=== PATIENT | female | born 1955 | race Caucasian/White ===

== ENCOUNTER 2021-03-25 09:44 | Emergency (ER) | payer MEDICARE, OTHER ==
[~2021-03-25] VITALS: Ht 162.6 cm; Wt 52.2 kg
[~2021-03-25 09:44] MED LIST: ALENDRONATE SOD10 MG PO; ALPRAZOLAM1 MG PO; AMITRIPTYLINE100 MG PO; BACLOFEN10 MG PO; BUTALB-ACETAMI1 EACH PO; HYDROCODON-ACE1 EA10 PO; HYDROMORPHONE HC2 MG PO; NORCO 5-325 TA1 EACH PO; OMEPRAZOLE20 MG PO; ONDANSETRON ODT8 MG PO; OXYBUTYNIN CHLOR5 MG PO
--- OUTSIDE RECORDS SUMMARY | 2021-03-25 10:20 | XMS ---
PreManage Notification: CHITRA ALVAREZ Security Venue Coordinator Events No recent Security Events currently on file [facility] There are no care providers on record at this time. Mynor has no Care Guidelines for this patient. Rickie VISIT COUNT (12 MO.) 1 NADJA Randolph TOTAL 1 NOTE: Visits indicate total known visits. ED/UCC VISIT TRACKING (12 MO.) 03/25/2021 09:45 NADJA Vaz[facility] [place] TYPE: Emergency COMPLAINT: - R KNEE TWISTED/PAIN INPATIENT VISIT TRACKING (12 MO.) No inpatient visits to display in this time frame [id number]
[2021-03-25] MEDS ORDERED: HYDROCODON-ACE1 EA10 PO (10:43)
[2021-03-25] MEDS ORDERED: ONDANSETRON ODT8 MG PO (10:43)
== END 2021-03-25 11:37 | disposition home or self-care (01) ==
LOC: ED 09:44
DX: S83.91XA Sprain of unspecified site of right knee, initial encounter (principal); F17.200 Nicotine dependence, unspecified, uncomplicated; X50.9XXA Other and unspecified overexertion or strenuous movements or postures, initial encounter; Z88.5 Allergy status to narcotic agent; Z79.899 Other long term (current) drug therapy
CPT/HCPCS: 73560; 99283; A9270

== ENCOUNTER 2024-10-27 09:14 | Emergency (ER) | payer MEDICARE, OTHER ==
[~2024-10-27] VITALS: Ht 162.6 cm; Wt 57.3 kg
[2024-10-27] MEDS ORDERED: SODIUM CHLORIDE 0.9% 1,700 ML IV PRN (09:30)
[2024-10-27] MEDS ORDERED: CEFTRIAXONE SODIUM 2 GM in SODIUM CHLORIDE 0.9% 100 ML IV ONE (09:30)
[2024-10-27 09:50] LABS: BASOPHILS 0.6 % (0.1-1.2); EOSINOPHILS 0.8 % (0.7-5.8); HEMATOCRIT 42.1 % (34.1-44.9); HEMOGLOBIN 14.1 g/dL (11.2-15.7); LYMPHOCYTES 20.1 % (19.3-51.7); MCH 31.5 PG (25.6-32.2); MCHC 33.5 g/dL (32.2-35.5); MONOCYTES 10.8 % (4.7-12.5); NEUTROPHILS 67.3 % (34.0-71.1); PLATELET COUNT 364 K/uL (182-369); RBC 4.48 M/uL (3.93-5.22)
[2024-10-27 10:04] LABS: PARTIAL THROMBOPLASTIN TIME 25.3 Sec (22.9-41.3)
[2024-10-27 10:05] LABS: INR 1.02 (0.80-1.30); PROTIME 12.8 Sec (11.2-14.2)
[2024-10-27 10:13] LABS: LACTIC ACID, BLOOD 0.9 mmol/L (0.4-2.0)
[2024-10-27 10:16] LABS: BILIRUBIN, URINE NEGATIVE (negative); BLOOD/HGB, URINE LARGE (Negative); KETONE, URINE SMALL (Negative); LEUK ESTERASE, URINE LARGE (negative); NITRITE, URINE POSITIVE (negative)
[2024-10-27 10:22] LABS: BACTERIA, URINE 2+ /hpf (negative); CRYSTALS, URINE NONE SEEN (0-1+); EPITHELIAL CELLS, URINE SQUAMOUS 2+ /lpf (0-1+); RED BLOOD CELLS, URINE 41-50 /hpf (0-5); WHITE BLOOD CELLS, URINE 41-50 /HPF (0-5)
[2024-10-27 10:23] LABS: CASTS, URINE NONE SEEN \\lpf; COLLECTION TYPE, URINE CLEAN CATCH; REFLEX CULTURE, URINE No (No)
[2024-10-27 10:25] LABS: ALBUMIN 3.6 g/dL (3.4-5.0); ALBUMIN/GLOBULIN RATIO 1.06 (1.1-2.4); ANION GAP 14.9 (7-21); BUN/CREATININE RATIO 19.64 (6.0-28.6); CALCIUM 9.4 mg/dL (8.5-10.1); CREATININE, SERUM 0.56 mg/dL (0.55-1.02); POTASSIUM 3.9 mmol/L (3.5-5.1)
[2024-10-27 10:28] LABS: ACETAMINOPHEN 0 ug/mL (10-30); ALCOHOL, MEDICAL <3 ng/dL (<3); SALICYLATE 4.3 mg/dL (2.8-20.0); TSH, 3RD GENERATION 2.683 uIU/mL (0.358-3.740)
[2024-10-27 10:43] LABS: AMPHETAMINES, URINE NEGATIVE (NEGATIVE); BARBITURATES, URINE NEGATIVE (NEGATIVE); BENZODIAZEPINE, URINE NEGATIVE (NEGATIVE); BUPRENORPHINE, URINE NEGATIVE (NEGATIVE); CANNABINOID, URINE POSITIVE (NEGATIVE); COCAINE, URINE NEGATIVE (NEGATIVE); ECSTASY, URINE NEGATIVE (NEGATIVE); FENTANYL, URINE NEGATIVE (NEGATIVE); METHADONE, URINE NEGATIVE (NEGATIVE); OPIATES, URINE NEGATIVE (NEGATIVE); OXYCODONE, URINE POSITIVE (NEGATIVE); PHENCYCLIDINE, URINE NEGATIVE (NEGATIVE)
[2024-10-27] MEDS ORDERED: BUTALB-ACETAMI1 EACH (11:11)
[2024-10-27] MEDS ORDERED: METOPROLOL TART25 MG (11:12)
[2024-10-27 11:37] LABS: LACTIC ACID, BLOOD 0.8 mmol/L (0.4-2.0)
[2024-10-27 15:14] VITALS: BP 157/94
--- NOTE | 2024-10-28 21:28 | EKG ---
[facility] [address] [place] [address] Signed Normal sinus rhythm Anteroseptal infarct , age undetermined Abnormal ECG No previous ECGs available Confirmed by Carolann Chawla MD () on 10/28/2024 9:27:52 PM Electronically Signed By: CAROLANN CHAWLA MD 10/28/242127 PATIENT NAME: CHITRA ALVAREZ Electrocardiogram DATE OF : 55 PHYSICIAN: CAROLANN CHAWLA MD REPORT #: [id number] REPORT IS CONFIDENTIAL AND NOT TO BE RELEASED WITHOUT AUTHORIZATION
== END 2024-10-27 15:14 | disposition short-term general hospital (02) ==
LOC: ED 09:14
PROVIDERS: Emergency Medicine
DX: G93.40 Encephalopathy, unspecified (principal); F17.200 Nicotine dependence, unspecified, uncomplicated; Z79.899 Other long term (current) drug therapy; Z88.5 Allergy status to narcotic agent
CPT/HCPCS: 36415; 51702; 62270; 70450; 70486; 70496; 71045; 71250; 74176; 80053; 80307; 81001; 82140; 82945; 83605; 84157; 84443; 85025; 85610; 85730; 87040; 87205; 89051; 93005; 93010; 99285-25; A4311; G0480; J0696; Q9967

== ENCOUNTER 2025-01-26 13:09 | Emergency (ER) | payer MEDICARE, OTHER ==
[~2025-01-26] VITALS: Ht 162.6 cm; Wt 52.0 kg
[~2025-01-26 13:09] MED LIST changes: +BUTALB-ACETAMI1 EACH; +METOPROLOL TART25 MG
[2025-01-26] MEDS ORDERED: AMOX TR-K CLV1 EAC1 PO (13:51)
[2025-01-26] MEDS ORDERED: POTASSIUM CHLO20 ME2 (13:57)
[2025-01-26 13:58] VITALS: BP 111/74
== END 2025-01-26 14:01 | disposition home or self-care (01) ==
LOC: ED 13:09
DX: H66.91 Otitis media, unspecified, right ear (principal); G40.909 Epilepsy, unspecified, not intractable, without status epilepticus; F17.200 Nicotine dependence, unspecified, uncomplicated; Z88.5 Allergy status to narcotic agent; Z79.899 Other long term (current) drug therapy
CPT/HCPCS: 99282

== ENCOUNTER 2025-02-04 07:00 | Emergency (ER) | payer MEDICARE, OTHER ==
[~2025-02-04] VITALS: Ht 162.6 cm; Wt 55.0 kg
[~2025-02-04 07:00] MED LIST changes: +AMOX TR-K CLV1 EAC1 PO; +POTASSIUM CHLO20 ME2
--- OUTSIDE RECORDS SUMMARY | 2025-02-04 07:06 | XMS ---
PreManage Notification: CHITRA ALVAREZ Security Creel Selector Events No recent Security Events currently on file CRITERIA MET - [facility] - 2 Visits in 30 Days CARE PROVIDERS TACHO GARAY Nurse Practitioner: Family [facility] PHONE: [phone] LUCY ACKERMAN Physician Fire Sprinkler Designer Drea GERBER PHONE: [phone] MARTINA PAUL Nurse Practitioner: Adult Health [facility] PHONE: [phone] Mynor has no Care Guidelines for this patient. E.D. VISIT COUNT (12 MO.) 3 NADJA Randolph TOTAL 3 NOTE: Visits indicate total known visits. ED/UCC VISIT TRACKING (12 MO.) 02/04/2025 07:00 [facility] [place] TYPE: Emergency COMPLAINT: - FALL 01/26/2025 13:10 NADJA [facility] [place] TYPE: Emergency COMPLAINT: - RT EAR PAIN DIAGNOSES: - Allergy status to narcotic agent - Epilepsy, unspecified, not intractable, without status epilepticus - Nicotine dependence, unspecified, uncomplicated - Otalgia, right ear - Other nursing home (current) drug therapy - Otitis media, unspecified, right ear 10/27/2024 09:15 [facility] [place] TYPE: Emergency COMPLAINT: - URINARY PROBLEM DIAGNOSES: - Allergy status to narcotic agent - Altered mental status, unspecified - Encephalopathy, unspecified - Nicotine dependence, unspecified, uncomplicated - Other nursing home (current) drug therapy INPATIENT VISIT TRACKING (12 MO.) 10/27/2024 16:34 [facility] TYPE: Neurology DIAGNOSES: - Candidal stomatitis - Cannabis use, unspecified, uncomplicated - Depression, unspecified - Disorientation, unspecified - Encephalopathy, unspecified - Essential (primary) hypertension - Generalized anxiety disorder - Generalized idiopathic epilepsy and epileptic syndromes, not intractable, without status epilepticus - Metabolic encephalopathy - Other cystostomy status - Other nursing home (current) drug therapy - Other specified hypothyroidism - Personal history of traumatic brain injury - Sedative, hypnotic or anxiolytic dependence, uncomplicated - Urinary tract infection, site not specified - AMS [id number]
[2025-02-04] MEDS ORDERED: PRALUENT P75 MG/1 ML SUB-Q (07:16)
[2025-02-04] MEDS ORDERED: HYDROXYZINE HCL25 MG PO (07:16)
[2025-02-04] MEDS ORDERED: PANTOPRAZOLE SO40 MG PO (07:17)
[2025-02-04 08:12] LABS: BLOOD/HGB, URINE LARGE (Negative); KETONE, URINE NEGATIVE (Negative); LEUK ESTERASE, URINE MODERATE (negative); NITRITE, URINE NEGATIVE (negative)
[2025-02-04 08:20] LABS: BACTERIA, URINE 4+ /hpf (negative); CASTS, URINE NONE SEEN \\lpf; CRYSTALS, URINE NONE SEEN (0-1+); EPITHELIAL CELLS, URINE SQUAMOUS 1+ /lpf (0-1+); REFLEX CULTURE, URINE Yes (No)
[2025-02-04 08:33] LABS: BASOPHILS 0.5 % (0.1-1.2); EOSINOPHILS 2.8 % (0.7-5.8); LYMPHOCYTES 13.5 % (19.3-51.7); MCH 31.1 PG (25.6-32.2); MCHC 33.3 g/dL (32.2-35.5); MCV 93.2 fL (79.4-94.8); MONOCYTES 9.3 % (4.7-12.5); NEUTROPHILS 73.5 % (34.0-71.1); RBC 4.38 M/uL (3.93-5.22)
[2025-02-04 08:49] LABS: ALT (SGPT) 5.0 U/L (14-59); AST (SGOT) 27.0 U/L (15-37); GLOMERULAR FILTRATION RATE,EST 88.0 mL/min (>60); PROTEIN, TOTAL 5.5 g/dL (6.4-8.2); UREA NITROGEN 4.0 mg/dL (7-18)
[2025-02-04] MEDS ORDERED: CEFDINIR300 MG PO (10:09)
[2025-02-04] MEDS ORDERED: POTASSIUM CHLORIDE 20 MEQ in DEXTROSE 5% 250 ML IV ONE (10:15)
[2025-02-04 13:21] VITALS: BP 156/92
== END 2025-02-04 13:21 | disposition home or self-care (01) ==
LOC: ED 07:00
PROVIDERS: Emergency Medicine
DX: R53.1 Weakness (principal); E87.6 Hypokalemia; N39.0 Urinary tract infection, site not specified; R29.6 Repeated falls; F17.200 Nicotine dependence, unspecified, uncomplicated; Z88.5 Allergy status to narcotic agent; Z79.899 Other long term (current) drug therapy
CPT/HCPCS: 36415; 51702; 80053; 81001; 85025; 87088; 96365; 96366; 96367; 99285-25; A4311; J0696; J3480; J7060

== ENCOUNTER 2025-02-05 09:23 | Emergency (ER) | payer MEDICARE, OTHER ==
[~2025-02-05] VITALS: Ht 162.6 cm; Wt 53.2 kg
[~2025-02-05 09:23] MED LIST changes: +CEFDINIR300 MG PO; +HYDROXYZINE HCL25 MG PO; +PANTOPRAZOLE SO40 MG PO; +PRALUENT P75 MG/1 ML SUB-Q
--- OUTSIDE RECORDS SUMMARY | 2025-02-05 09:30 | XMS ---
PreManage Notification: CHITRA ALVAREZ Security River Boat Captain Events No recent Security Events currently on file CRITERIA MET - [facility] - 2 Visits in 30 Days CARE PROVIDERS TACHO GARAY Nurse Practitioner: Family [facility] PHONE: [phone] LUCY ACKERMAN Physician Debit Agent Drea GERBER PHONE: [phone] MARTINA PAUL Nurse Practitioner: Adult Health [facility] PHONE: [phone] Mynor has no Care Guidelines for this patient. E.D. VISIT COUNT (12 MO.) 4 NADJA Randolph TOTAL 4 NOTE: Visits indicate total known visits. ED/UCC VISIT TRACKING (12 MO.) 02/05/2025 09:23 NADJA [facility] [place] TYPE: Emergency COMPLAINT: - CATHETER PROBLEM 02/04/2025 07:00 [facility] [place] TYPE: Emergency COMPLAINT: - FALL 01/26/2025 13:10 NADJA [facility] [place] TYPE: Emergency COMPLAINT: - RT EAR PAIN DIAGNOSES: - Allergy status to narcotic agent - Epilepsy, unspecified, not intractable, without status epilepticus - Nicotine dependence, unspecified, uncomplicated - Otalgia, right ear - Other prison (current) drug therapy - Otitis media, unspecified, right ear 10/27/2024 09:15 NADJA Adkins TYPE: Emergency COMPLAINT: - URINARY PROBLEM DIAGNOSES: - Allergy status to narcotic agent - Altered mental status, unspecified - Encephalopathy, unspecified - Nicotine dependence, unspecified, uncomplicated - Other technician terminal and repeater (current) drug therapy INPATIENT VISIT TRACKING (12 MO.) 10/27/2024 16:34 [facility] TYPE: Neurology DIAGNOSES: - Candidal stomatitis - Cannabis use, unspecified, uncomplicated - Depression, unspecified - Disorientation, unspecified - Encephalopathy, unspecified - Essential (primary) hypertension - Generalized anxiety disorder - Generalized idiopathic epilepsy and epileptic syndromes, not intractable, without status epilepticus - Metabolic encephalopathy - Other cystostomy status - Other prison (current) drug therapy - Other specified hypothyroidism - Personal history of traumatic brain injury - Sedative, hypnotic or anxiolytic dependence, uncomplicated - Urinary tract infection, site not specified - AMS [id number]
[2025-02-05] MEDS ORDERED: CEFDINIR 300 MG CAP PO ONE (10:30)
[2025-02-05] MEDS ORDERED: POTASSIUM CHLORIDE 10 MEQ TABCR PO ONE (10:30)
[2025-02-05 11:17] VITALS: BP 145/90
== END 2025-02-05 11:17 | disposition home or self-care (01) ==
LOC: ED 09:23
DX: R53.1 Weakness (principal); F17.200 Nicotine dependence, unspecified, uncomplicated; Z93.50 Unspecified cystostomy status; Z88.5 Allergy status to narcotic agent; Z79.83 Long term (current) use of bisphosphonates; Z79.899 Other long term (current) drug therapy
CPT/HCPCS: 99284; A9270

== ENCOUNTER 2025-02-06 13:29 | Emergency (ER) | payer MEDICARE, OTHER ==
[~2025-02-06] VITALS: Ht 162.6 cm; Wt 53.2 kg
--- OUTSIDE RECORDS SUMMARY | 2025-02-06 13:36 | XMS ---
PreManage Notification: CHITRA ALVAREZ Security Biomedical Photographer Events No recent Security Events currently on file CRITERIA MET - [facility] - 2 Visits in 30 Days CARE PROVIDERS TACHO GARAY Nurse Practitioner: Family [facility] PHONE: [phone] LUCY ACKERMAN Physician Quality Assurance Analyst Drea GERBER PHONE: [phone] MARTINA PAUL Nurse Practitioner: Adult Health [facility] PHONE: [phone] Mynor has no Care Guidelines for this patient. E.D. VISIT COUNT (12 MO.) 5 NADJA Randolph TOTAL 5 NOTE: Visits indicate total known visits. ED/UCC VISIT TRACKING (12 MO.) 02/06/2025 13:30 NADJA [facility] [place] TYPE: Emergency COMPLAINT: - URINE PROBLEM 02/05/2025 09:23 NADJA [facility] [place] TYPE: Emergency COMPLAINT: - CATHETER PROBLEM 02/04/2025 07:00 NADJA Tarina P[facility] [place] TYPE: Emergency COMPLAINT: - FALL 01/26/2025 13:10 NADJA Tarina HLaura [place] TYPE: Emergency COMPLAINT: - RT EAR PAIN DIAGNOSES: - Allergy status to narcotic agent - Epilepsy, unspecified, not intractable, without status epilepticus - Nicotine dependence, unspecified, uncomplicated - Otalgia, right ear - Other truck terminal manager (current) drug therapy - Otitis media, unspecified, right ear 10/27/2024 09:15 NADJA [facility]az[facility] [place] TYPE: Emergency COMPLAINT: - URINARY PROBLEM DIAGNOSES: - Allergy status to narcotic agent - Altered mental status, unspecified - Encephalopathy, unspecified - Nicotine dependence, unspecified, uncomplicated - Other truck terminal manager (current) drug therapy INPATIENT VISIT TRACKING (12 MO.) 10/27/2024 16:34 [facility] TYPE: Neurology DIAGNOSES: - Candidal stomatitis - Cannabis use, unspecified, uncomplicated - Depression, unspecified - Disorientation, unspecified - Encephalopathy, unspecified - Essential (primary) hypertension - Generalized anxiety disorder - Generalized idiopathic epilepsy and epileptic syndromes, not intractable, without status epilepticus - Metabolic encephalopathy - Other cystostomy status - Other truck terminal manager (current) drug therapy - Other specified hypothyroidism - Personal history of traumatic brain injury - Sedative, hypnotic or anxiolytic dependence, uncomplicated - Urinary tract infection, site not specified - AMS [id number]
[2025-02-06] MEDS ORDERED: SODIUM CHLORIDE 0.9% 1,000 ML IV ONE (14:00)
[2025-02-06 14:17] LABS: BLOOD/HGB, URINE MODERATE (Negative); KETONE, URINE NEGATIVE (Negative); LEUK ESTERASE, URINE LARGE (negative); NITRITE, URINE NEGATIVE (negative)
[2025-02-06 14:26] LABS: BACTERIA, URINE RARE /hpf (negative); CASTS, URINE NONE SEEN \\lpf; CRYSTALS, URINE NONE SEEN (0-1+); EPITHELIAL CELLS, URINE NONE SEEN /lpf (0-1+)
[2025-02-06 14:27] LABS: REFLEX CULTURE, URINE Yes (No)
[2025-02-06 14:50] LABS: BASOPHILS 0.4 % (0.1-1.2); EOSINOPHILS 0.4 % (0.7-5.8); LYMPHOCYTES 8.6 % (19.3-51.7); MCH 30.9 PG (25.6-32.2); MCHC 32.1 g/dL (32.2-35.5); MCV 96.4 fL (79.4-94.8); MONOCYTES 9.3 % (4.7-12.5); NEUTROPHILS 80.9 % (34.0-71.1); RBC 4.46 M/uL (3.93-5.22)
[2025-02-06 15:00] VITALS: BP 166/61
[2025-02-06 15:07] LABS: ALT (SGPT) 19.0 U/L (14-59); AST (SGOT) 24.0 U/L (15-37); GLOMERULAR FILTRATION RATE,EST 67.0 mL/min (>60); PROTEIN, TOTAL 5.7 g/dL (6.4-8.2); UREA NITROGEN 4.0 mg/dL (7-18)
== END 2025-02-06 16:01 | disposition home or self-care (01) ==
LOC: ED 13:29
PROVIDERS: Emergency Medicine
DX: T83.020A Displacement of cystostomy catheter, initial encounter (principal); N39.0 Urinary tract infection, site not specified; F17.200 Nicotine dependence, unspecified, uncomplicated; Z88.5 Allergy status to narcotic agent; Z79.83 Long term (current) use of bisphosphonates; Z79.899 Other long term (current) drug therapy
CPT/HCPCS: 36415; 80053; 81001; 85025; 87088; 96374; 99283-25; J0696; J7030

== ENCOUNTER 2025-02-07 10:56 | Emergency (ER) | payer MEDICARE, OTHER ==
[~2025-02-07] VITALS: Ht 162.6 cm; Wt 53.2 kg
[2025-02-07 11:49] LABS: BASOPHILS 0.5 % (0.1-1.2); EOSINOPHILS 0.5 % (0.7-5.8); LYMPHOCYTES 15.1 % (19.3-51.7); MCH 31.5 PG (25.6-32.2); MCHC 32.8 g/dL (32.2-35.5); MCV 96.0 fL (79.4-94.8); MONOCYTES 11.5 % (4.7-12.5); NEUTROPHILS 71.8 % (34.0-71.1); RBC 4.22 M/uL (3.93-5.22)
[2025-02-07 12:04] LABS: ALT (SGPT) 20.0 U/L (14-59); AST (SGOT) 29.0 U/L (15-37); GLOMERULAR FILTRATION RATE,EST 77.0 mL/min (>60); PROTEIN, TOTAL 5.7 g/dL (6.4-8.2); UREA NITROGEN 5.0 mg/dL (7-18)
[2025-02-07 13:21] LABS: BLOOD/HGB, URINE TRACE-I (Negative); KETONE, URINE NEGATIVE (Negative); LEUK ESTERASE, URINE SMALL (negative); NITRITE, URINE NEGATIVE (negative)
[2025-02-07 13:27] LABS: BACTERIA, URINE 1+ /hpf (negative); CASTS, URINE NONE SEEN \\lpf; CRYSTALS, URINE NONE SEEN (0-1+); EPITHELIAL CELLS, URINE SQUAMOUS 1+ /lpf (0-1+); REFLEX CULTURE, URINE Yes (No)
[2025-02-07 13:47] LABS: AMPHETAMINES, URINE NEGATIVE (NEGATIVE); BARBITURATES, URINE NEGATIVE (NEGATIVE); BENZODIAZEPINE, URINE NEGATIVE (NEGATIVE); CANNABINOID, URINE NEGATIVE (NEGATIVE); COCAINE, URINE NEGATIVE (NEGATIVE); ECSTASY, URINE NEGATIVE (NEGATIVE); FENTANYL, URINE NEGATIVE (NEGATIVE); METHADONE, URINE NEGATIVE (NEGATIVE); OPIATES, URINE NEGATIVE (NEGATIVE); OXYCODONE, URINE NEGATIVE (NEGATIVE); PHENCYCLIDINE, URINE NEGATIVE (NEGATIVE)
[2025-02-07 14:26] VITALS: BP 151/90
== END 2025-02-07 15:05 | disposition home or self-care (01) ==
LOC: ED 10:56
PROVIDERS: Emergency Medicine
DX: R53.1 Weakness (principal); R62.7 Adult failure to thrive; T83.9XXA Unspecified complication of genitourinary prosthetic device, implant and graft, initial encounter; F17.200 Nicotine dependence, unspecified, uncomplicated; Z91.81 History of falling; Z68.20 Body mass index [BMI] 20.0-20.9, adult; Z88.5 Allergy status to narcotic agent; Z79.83 Long term (current) use of bisphosphonates; Z79.899 Other long term (current) drug therapy
CPT/HCPCS: 36415; 70450; 80053; 80307; 81001; 85025; 87077; 87088; 99285-25

== ENCOUNTER 2025-02-23 14:04 | Emergency (ER) | payer MEDICARE, OTHER ==
[~2025-02-23] VITALS: Ht 162.6 cm; Wt 48.9 kg
--- OUTSIDE RECORDS SUMMARY | 2025-02-23 14:11 | XMS ---
PreManage Notification: CHITRA ALVAREZ Security Criminal Analyst Events No recent Security Events currently on file CRITERIA MET - 6 ED Visits in 6 Months - [facility] - 2 Visits in 30 Days CARE PROVIDERS TACHO GARAY Nurse Practitioner: Family [facility] PHONE: [phone] LUCY ACKERMAN Physician Voucher Examiner Drea GERBER PHONE: [phone] MARTINA PAUL Nurse Practitioner: Adult Health [facility] PHONE: [phone] Mynor has no Care Guidelines for this patient. E.D. VISIT COUNT (12 MO.) 7 NADJA Arora [employer] [facility] TOTAL 8 NOTE: Visits indicate total known visits. ED/UCC VISIT TRACKING (12 MO.) 02/23/2025 14:05 NADJA Vazquez [place] TYPE: Emergency COMPLAINT: - CATHETER PROBLEM 02/08/2025 12:01 [facility]: Emergency DIAGNOSES: - Breakdown (mechanical) of cystostomy catheter, initial encounter - Weakness - ALTERED MENTAL STATUS 02/07/2025 10:57 NADJA Vazquez [place] TYPE: Emergency COMPLAINT: - FALL DIAGNOSES: - Adult failure to thrive - Allergy status to narcotic agent - Body mass index [BMI] 20.0-20.9, adult - Encounter for examination and observation following other accident - History of falling - [facility] (current) use of bisphosphonates - Nicotine dependence, unspecified, uncomplicated - Other correction (current) drug therapy - Unspecified complication of genitourinary prosthetic device, implant and graft, initial encounter - Weakness 02/06/2025 13:30 NADJA Vaz[facility] [place] TYPE: Emergency COMPLAINT: - URINE PROBLEM DIAGNOSES: - Allergy status to narcotic agent - Displacement of cystostomy catheter, initial encounter - joint terminal attack controller (current) use of bisphosphonates - Nicotine dependence, unspecified, uncomplicated - Other rn long term care (current) drug therapy - Other mechanical complication of cystostomy catheter, initial encounter - Urinary tract infection, site not specified 02/05/2025 09:23 NADJA Vazquez [place] TYPE: Emergency COMPLAINT: - CATHETER PROBLEM DIAGNOSES: - Allergy status to narcotic agent - joint terminal attack controller (current) use of bisphosphonates - Nicotine dependence, unspecified, uncomplicated - Other correction (current) drug therapy - Unspecified cystostomy status - Weakness 02/04/2025 07:00 NADJA Vaz[place] TYPE: Emergency COMPLAINT: - FALL DIAGNOSES: - Allergy status to narcotic agent - Hypokalemia - Nicotine dependence, unspecified, uncomplicated - Other rn long term care (current) drug therapy - Repeated falls - Urinary tract infection, site not specified - Weakness 01/26/2025 13:10 NADJA Vaz[facility] [place] TYPE: Emergency COMPLAINT: - RT EAR PAIN DIAGNOSES: - Allergy status to narcotic agent - Epilepsy, unspecified, not intractable, without status epilepticus - Nicotine dependence, unspecified, uncomplicated - Otalgia, right ear - Other rn long term care (current) drug therapy - Otitis media, unspecified, right ear 10/27/2024 09:15 NADJA Vazquez [place] TYPE: Emergency COMPLAINT: - URINARY PROBLEM DIAGNOSES: - Allergy status to narcotic agent - Altered mental status, unspecified - Encephalopathy, unspecified - Nicotine dependence, unspecified, uncomplicated - Other correction (current) drug therapy INPATIENT VISIT TRACKING (12 MO.) 10/27/2024 16:34 [facility] TYPE: Neurology DIAGNOSES: - Candidal stomatitis - Cannabis use, unspecified, uncomplicated - Depression, unspecified - Disorientation, unspecified - Encephalopathy, unspecified - Essential (primary) hypertension - Generalized anxiety disorder - Generalized idiopathic epilepsy and epileptic syndromes, not intractable, without status epilepticus - Metabolic encephalopathy - Other cystostomy status - Other correction (current) drug therapy - Other specified hypothyroidism - Personal history of traumatic brain injury - Sedative, hypnotic or anxiolytic dependence, uncomplicated - Urinary tract infection, site not specified - AMS [email or web address]
[2025-02-23 18:09] VITALS: BP 120/72
== END 2025-02-23 18:10 | disposition home or self-care (01) ==
LOC: ED 14:04
DX: T83.090A Other mechanical complication of cystostomy catheter, initial encounter (principal); R33.9 Retention of urine, unspecified; F17.200 Nicotine dependence, unspecified, uncomplicated; Z88.5 Allergy status to narcotic agent; Z79.83 Long term (current) use of bisphosphonates; Z79.899 Other long term (current) drug therapy
CPT/HCPCS: 51798; 99283

== ENCOUNTER 2025-03-21 13:20 | Emergency (ER) | payer MEDICARE, OTHER ==
[~2025-03-21] VITALS: Ht 162.6 cm; Wt 55.0 kg
--- OUTSIDE RECORDS SUMMARY | ~2025-03-21 | XMS | Continuity of Care Document ---
Demographics + + + | Address | [address] | | | [place] [address] | + + + | Preferred Language | Unknown | + + + | Marital Status | | + + + | Cheondoism Affiliation | Unknown | + + + | Race | White | + + + | Ethnic Group | Not or | + + + Author + + + | Author | [facility] | + + + | Organization | [facility] | + + + | Address | [address] | | | [place] [address] | + + + | Phone | | + + + Care Team Providers + + + + | Care Tank Filler Name | Role | Phone | + + + + Unavailable | Unavailable | + + + + Unavailable | Unavailable | + + + + Unavailable | Unavailable | + + + + Unavailable | Unavailable | + + + + Unavailable | Unavailable | + + + + Allergies and Intolerances + + + + + + | date | description | facility | reaction | severity | + + + + + + | 2025-02-04 | sIaiah | [facility] | (no reaction) | Severe | | 00:00 | [facility] | | | + + + + + + | 2025-02-05 | Codeine | [facility] - | (no reaction) | Severe | | 00:00 | | [facility] | | | + + + + + + | 2025-02-04 | Hydrocodone | [facility] - | (no reaction) | Severe | [facility] 00:00 | [facility] | | | + + + + + + | 2025-02-05 | Hydrocodone | [facility] - | (no reaction) | Severe | | 00:00 | | [facility] | | | + + + + + + | 2025-02-04 | Codeine | [facility] - | (no reaction) | Severe | | 00:00 | | [facility] | | | + + + + + + | 2025-02-05 | Codeine | [facility] - | (no reaction) | Severe | | 00:00 | [facility] | | | + + + + + + | 2025-02-04 | Hydrocodone | [facility] - | (no reaction) | Severe | [facility] 00:00 [facility] | | | + + + + + + | 2025-02-05 | Hydrocodone | [facility] - | (no reaction) | Severe | [facility] 00:00 [facility] | | | + + + + + + | 2025-02-04 | Hydrocodone | [facility] - | (no reaction) | Severe | [facility] 00:00 | [facility] | | | + + + + + + | 2025-02-05 | Hydrocodone | [facility] - | (no reaction) | Severe | | 00:00 | [facility] | | | + + + + + + | 2025-02-04 | Isaiah | [facility] | (no reaction) | Severe | | 00:00 | | [facility] | | | + + + + + + | 2025-02-05 | Codeine | [facility] - | (no reaction) | Severe | | 00:00 | | [facility] | | | + + + + + + Encounters No information. Functional Status No information. Immunizations No information. Medications + + + + | date | description | facility | + + + + | (no date) | ALIROCUMAB | [facility] | + + + + | (no date) | ALIROCUMAB | [facility] | [facility] | + + + + | (no date) | AL[facility]OCUMAB | [facility] | [facility] | + + + + | (no date) | AL[facility]AZOLAM | [facility] | + + + + | (no date) | BACLOFEN | [facility] | [facility] | + + + + | (no date) | BACLOFEN | [facility] | [facility] | + + + + | (no date) | BACLOFEN | [facility] | [facility] | + + + + | (no date) | BACLOFEN | [facility] | [facility] | + + + + | (no date) | OMEPRAZOLE | [facility] | [facility] | + + + + | (no date) | OMEPRAZOLE | [facility] | [facility] | + + + + | (no date) | OMEPRAZOLE | [facility] | [facility] | + + + + | (no date) | OMEPRAZOLE | [facility] | | | [facility] | + + + + | (no date) | POTASSIUM CHLORIDE | [facility] | | | | [facility] | + + + + | (no date) | POTASSIUM CHLORIDE | [facility] | | | | [facility] | + + + + | (no date) | POTASSIUM CHLORIDE | [facility] | | | | [facility] | + + + + | (no date) | POTASSIUM CHLORIDE | [facility] | | | | [facility] | + + + + | 2025-02-04 00:00 | CEFDINIR | [facility] | + + + + | 2025-02-04 00:00 | CEFDINIR | [facility] | | | [facility] | + + + + | (no date) | | [facility] | | | BUTALB/ACETAMINOPHEN/CAFFEI | [facility] | | | NE | | + + + + | (no date) | | [facility] | | | BUTALB/ACETAMINOPHEN/CAFFEI | [facility] | | | NE | | + + + + | (no date) | | [facility] | | | BUTALB/ACETAMINOPHEN/CAFFEI | [facility] | | | NE | | + + + + | (no date) | | [facility] | | | BUTALB/ACETAMINOPHEN/CAFFEI | [facility] | | | NE | | + + + + | (no date) | PANTOPRAZOLE SODIUM | [facility] | | | | [facility] | + + + + | (no date) | PANTOPRAZOLE SODIUM | [facility] | | | | [facility] | + + + + | (no date) | PANTOPRAZOLE SODIUM | [facility] | | | [facility] | + + + + | 2025-01-26 00:00 | AMOXICILLIN/POTASSIUM CLAV | [facility] | [facility] | + + + + | 2025-01-26 00:00 | AMOXICILLIN/POTASSIUM CLAV | [facility] | + + + + | 2025-01-26 00:00 | AMOXICILLIN/POTASSIUM CLAV | [facility] | [facility] | + + + + | 2025-01-26 00:00 | AMOXICILLIN/POTASSIUM CLAV | [facility] | | | [facility] | + + + + | (no date) | AMITRIPTYLINE HCL | [facility] | | [facility] | + + + + | (no date) | AMITRIPTYLINE HCL | [facility] | | | [facility] | + + + + | (no date) | AMITRIPTYLINE HCL | [facility] | | | [facility] | + + + + | (no date) | AMITRIPTYLINE HCL | [facility] | | | [facility] | + + + + | (no date) | HYDROCODONE | [facility] | | BIT/ACETAMINOPHEN | [facility] | + + + + | (no date) | HYDROCODONE | [facility] | | | BIT/ACETAMINOPHEN | [facility] | + + + + | (no date) | HYDROCODONE | [facility] | | | BIT/ACETAMINOPHEN | [facility] | + + + + | (no date) | HYDROCODONE | [facility] | | | BIT/ACETAMINOPHEN | [facility] | + + + + | (no date) | OXYBUTYNIN CHLORIDE | [facility] | | [facility] | + + + + | (no date) | METOPROLOL TARTRATE | [facility] | [facility] | + + + + | (no date) | METOPROLOL TARTRATE | [facility] | | | | [facility] | + + + + | (no date) | METOPROLOL TARTRATE | [facility] | | | | [facility] | + + + + | (no date) | METOPROLOL TARTRATE | [facility] | | | | [facility] | + + + + | (no date) | HYDROmorphone HCL | [facility] | | | | [facility] | + + + + | (no date) | HYDROmorphone HCL | [facility] | | | | [facility] | + + + + | (no date) | HYDROmorphone HCL | [facility] | | | | [facility] | + + + + | (no date) | HYDROmorphone HCL | [facility] | | | | [facility] | + + + + | (no date) | ALENDRONATE SODIUM | [facility] | | | | [facility] | + + + + | (no date) | ALENDRONATE SODIUM | [facility] | | | | [facility] | + + + + | (no date) | ALENDRONATE SODIUM | [facility] | | | | [facility] | + + + + | (no date) | ALENDRONATE SODIUM | [facility] | | | | [facility] | + + + + | (no date) | hydrOXYzine HCL | [facility] | | | | [facility] | + + + + | (no date) | hydrOXYzine HCL | [facility] | | | | [facility] | + + + + | (no date) | hydrOXYzine HCL | [facility] | | | | [facility] | + + + + Problems + + + + | date | description | facility | + + + + | 2025-01-26 00:00 | Right otitis media | [facility] | | | | [facility] | + + + + | 2025-01-26 00:00 | Right otitis media | [facility] | | | | [facility] | + + + + | 2025-01-26 00:00 | Right otitis media | [facility] | + + + + | 2025-01-26 00:00 | Right otitis media | [facility] | | | | [facility] | + + + + | 2025-02-04 00:00 | Hypokalemia | [facility] | | | | [facility] | + + + + | 2025-02-04 00:00 | Hypokalemia | [facility] | | | | [facility] | + + + + | 2025-02-04 00:00 | Hypokalemia | [facility] | | | | [facility] | + + + + | 2025-02-04 00:00 | Urinary tract infection | [facility] | | | | [facility] | + + + + | 2025-02-04 00:00 | Urinary tract infection | [facility] | | | | [facility] | + + + + | 2025-02-04 00:00 | Urinary tract infection | [facility] | | | | [facility] | + + + + | 2025-02-04 00:00 | Weakness | [facility] | | | | [facility] | + + + + | 2025-02-04 00:00 | Weakness | [facility] | | | | [facility] | + + + + | 2025-02-04 00:00 | Weakness | [facility] | | | | [facility] | + + + + | 2025-02-06 00:00 | Displacement of Nayak | [facility] | | | catheter | [facility] | + + + + | 2025-02-06 00:00 | Displacement of Nayak | [facility] | | | catheter | [facility] | + + + + | 2025-02-07 00:00 | Fall | [facility] | | | | [facility] | + + + + | 2025-02-23 00:00 | Acute retention of urine | [facility] | | | | [facility] | + + + + Procedures No information. Results/Labs +--------+--------+ +---------+--------+---------+ | test | date | facility | value | unit | notes | +--------+--------+ +---------+--------+---------+ + + | Result panel 1 | + + + + + + + + + | Color Ur | 2025-02-04 | | YELLOW | (missing) | (missing) | | Auto | 08:: | [facility] | | | | + + + + + + + + + | Result panel 2 | + + + + + +---------+ + + | Character | 2025-02-04 | | CLEAR | (missing) | (missing) | | Ur | 08:09:07 | [facility] | | | | + + + +---------+ + + + + | Result panel 3 | + + + + + + + + + | Glucose Ur | 2025-02-04 | | NEGATIVE | (missing) | (missing) | | Ql Strip | 08:09:07 | [facility] | | | | + + + + + + + + + | Result panel 4 | + + + + + + + + + | Biledwigeub Ur | 2025-02-04 | | NEGATIVE | (missing) | (missing) | | Ql Strip | 08:09:07 | [facility] | | | | + + + + + + + + + | Result panel 5 | + + + + + + + + + | Ketones Ur | 2025-02-04 | | NEGATIVE | (missing) | (missing) | | Ql Strip | 08:09:07 | [facility] | | | | + + + + + + + + + | Result panel 6 | + + + + + +---------+ + + | Tao Chew | 2025-02-04 | | 1.010 | (missing) | (missing) | | Strip | 08:: | [facility] | | | | + + + +---------+ + + + + | Result panel 7 | + + + + + +---------+ + + | Kristel Cazares | 2025-02-04 | | LARGE | (missing) | (missing) | | Strip | 08:: | [facility] | | | | + + + +---------+ + + + + | Result panel 8 | + + + + + +-------+ + + | pH Ur Strip | 2025-02-04 | | 6.5 | (missing) | (missing) | | | 08:09:07 | [facility] | | | | + + + +-------+ + + + + | Result panel 9 | + + + + + + + + + | Prot Ur | 2025-02-04 | | NEGATIVE | (missing) | (missing) | | Strip-mCnc | 08:09:07 | [facility] | | | | + + + + + + + + + | Result panel 10 | + + + + + + + + + | | 2025-02-04 | | NORMAL | (missing) | (missing) | | Urobilinogen | 08:09:07 | [facility] | | | | | Ur [facility]-m[facility]nc [facility] | | | | + + + + + + + + + | Result panel 11 | + + + + + + + + + | Nitrite Ur | 2025-02-04 | | NEGATIVE | (missing) | (missing) | | Ql Strip | 08:09:07 | [facility] | | | | + + + + + + + + + | Result panel 12 | + + + + + + + + + | Leukocyte | 2025-02-04 | | MODERATE | (missing) | (missing) | | esterase Ur | 08:09:07 | [facility] | | | | | Ql Strip [facility] | | | | + + + + + + + + + | Result panel 13 | + + + + + +-------+ + + | RBC #/area | 2025-02-04 | | 0-1 | (missing) | (missing) | | UrnS HPF | :: | [facility] | | | | + + + +-------+ + + + + | Result panel 14 | + + + + + +-------+ + + | WBC #/area | 2025-02-04 | | >50 | (missing) | (missing) | | UrnS HPF | : | [facility] | | | | + + + +-------+ + + + + | Result panel 15 | + + + + + + + + + | Epi Cells | 2025-02-04 | | SQUAMOUS 1+ | (missing) | (missing) | | #/area UrnS | 08:09:07 | [facility] | | | | | HPF [facility] | | | | + + + + + + + + + | Result panel 16 | + + + + + + + + + | Crystals | 2025-02-04 | | NONE SEEN | (missing) | (missing) | | UrnS Micro | 08:09:07 | [facility] | | | | + + + + + + + + + | Result panel 17 | + + + + + +------+ + + | Bacteria | 2025-02-04 | | 4+ | (missing) | (missing) | | #/area UrnS | 08:09:07 | [facility] | | | | | HPF [facility] | | | | + + + +------+ + + + + | Result panel 18 | + + + + + + + + + | Casts | 2025-02-04 | | NONE SEEN | (missing) | (missing) | | #/area UrnS | 08:09:07 | [facility] | | | | | LPF [facility] | | | | + + + + + + + + + | Result panel 19 | + + + + + +-------+ + + | Bacteria Ur | 2025-02-04 | | Yes | (missing) | (missing) | | Cult | 08:09:07 | [facility] | | | | + + + +-------+ + + + + | Result panel 20 | + + + + + + + + + | Urn Spec | 2025-02-04 | | CLEAN CATCH | (missing) | (missing) | | Collect Meth | 08:09:07 | [facility] | | | | | Ur [facility] | | | | + + + + + + + + + | Result panel 21 | + + + + + + + + + | Color Ur | 2025-02-04 | | YELLOW | (missing) | (missing) | | Auto | 08::07 | [facility] | | | | + + + + + + + + + | Result panel 22 | + + + + + +---------+ + + | Character | 2025-02-04 | | CLEAR | (missing) | (missing) | | Ur | 08:: | [facility] | | | | + + + +---------+ + + + + | Result panel 23 | + + + + + + + + + | Glucose Ur | 2025-02-04 | | NEGATIVE | (missing) | (missing) | | Ql Strip | 08:09:07 | [facility] | | | | + + + + + + + + + | Result panel 24 | + + + + + + + + + | Jone Chew | 2025-02-04 | | NEGATIVE | (missing) | (missing) | | Ql Strip | 08:09:07 | [facility] | | | | + + + + + + + + + | Result panel 25 | + + + + + + + + + | Ketoneleonarda Ur | 2025-02-04 | | NEGATIVE | (missing) | (missing) | | Ql Strip | 08:09:07 | [facility] | | | | + + + + + + + + + | Result panel 26 | + + + + + +---------+ + + | Sp Gr Ur | 2025-02-04 | | 1.010 | (missing) | (missing) | | Strip | 08:09:07 | [facility] | | | | + + + +---------+ + + + + | Result panel 27 | + + + + + +---------+ + + | Hgb Ur Ql | 2025-02-04 | | LARGE | (missing) | (missing) | | Strip | 08:: | [facility] | | | | + + + +---------+ + + + + | Result panel 28 | + + + + + +-------+ + + | pH Ur Strip | 2025-02-04 | | 6.5 | (missing) | (missing) | | | : | [facility] | | | | + + + +-------+ + + + + | Result panel 29 | + + + + + + + + + | Prot Ur | 2025-02-04 | | NEGATIVE | (missing) | (missing) | | Strip-mCnc | 08:09:07 | [facility] | | | | + + + + + + + + + | Result panel 30 | + + + + + + + + + | | 2025-02-04 | | NORMAL | (missing) | (missing) | | Urobilinogen | 08:09:07 | [facility] | | | | | Ur | [facility]-m[facility]nc | [facility] | | | | + + + + + + + + + | Result panel 31 | + + + + + + + + + | Nitrite Ur | 2025-02-04 | | NEGATIVE | (missing) | (missing) | | Ql Strip | 08:09:07 | [facility] | | | | + + + + + + + + + | Result panel 32 | + + + + + + + + + | Leukocyte | 2025-02-04 | | MODERATE | (missing) | (missing) | | esterase Ur | 08:09:07 | [facility] | | | | | Ql Strip [facility] | | | | + + + + + + + + + | Result panel 33 | + + + + + +-------+ + + | RBC #/area | 2025-02-04 | | 0-1 | (missing) | (missing) | | Bi HPF | 08:09:07 | [facility] | | | | | | | - | | | | | | | [facility] | | | | + + + +-------+ + + + + | Result panel 34 | + + + + + +-------+ + + | WBC #/area | 2025-02-04 | | >50 | (missing) | (missing) | | UrnS HPF | 08::07 | [facility] | | | | | | | - | | | | | | | [facility] | | | | + + + +-------+ + + + + | Result panel 35 | + + + + + + + + + | Epi Cells | 2025-02-04 | | SQUAMOUS 1+ | (missing) | (missing) | | #/area UrnS | 08::07 | [facility] | | | | | HPF [facility] | | | | + + + + + + + + + | Result panel 36 | + + + + + + + + + | Crystals | 2025-02-04 | | NONE SEEN | (missing) | (missing) | | UrnS Micro | 08:09:07 | [facility] | | | | + + + + + + + + + | Result panel 37 | + + + + + +------+ + + | Bacteria | 2025-02-04 | | 4+ | (missing) | (missing) | | #/area JeevannS | 08:09:07 | [facility] | | | | | HPF [facility] | | | | + + + +------+ + + + + | Result panel 38 | + + + + + + + + + | Casts | 2025-02-04 | | NONE SEEN | (missing) | (missing) | | #/area UrnS | 08:09:07 | [facility] | | | | | LPF | [facility] | | | | + + + + + + + + + | Result panel 39 | + + + + + +-------+ + + | Bacteria Ur | 2025-02-04 | | Yes | (missing) | (missing) | | Cult | 08:09:07 | [facility] | | | | + + + +-------+ + + + + | Result panel 40 | + + + + + + + + + | Jeevann Spec | 2025-02-04 | | CLEAN CATCH | (missing) | (missing) | | Collect Meth | 08:09:07 | [facility] | | | | | Ur | [facility] | | | | + + + + + + + + + | Result panel 41 | + + + + + +-----+---------+ + | BUN | 2025-02-04 | | 4 | mg/dL | (missing) | | [facility] | 08:28:07 | [facility] | | | | + + + +-----+---------+ + + + | Result panel 42 | + + + + + +--------+---------+ + | Creat | 2025-02-04 | | 0.73 | mg/dL | (missing) | | [facility] | 08:28:07 | [facility] | | | | + + + +--------+---------+ + + + | Result panel 43 | + + + + + +------+ + + | eGFRcr | 2025-02-04 | | 88 | (missing) | (missing) | | SerPlBld | 08:28:07 | [facility] | | | | | CKD-EPI 2020 | [facility] | | | | + + + +------+ + + + + | Result panel 44 | + + + + + +--------+ + + | BUN/Creat | 2025-02-04 | | 5.47 | (missing) | (missing) | | SerPl | 08:28:07 | [facility] | | | | + + + +--------+ + + + + | Result panel 45 | + + + + + +-------+ + + | Sodium | 2025-02-04 | | 142 | (missing) | (missing) | | SerPl-sCnc | 08:28:07 | [facility] | | | | + + + +-------+ + + + + | Result panel 46 | + + + + + +-------+ + + | Potassium | 2025-02-04 | | 2.6 | (missing) | (missing) | | SerPl-sCnc | 08:28:07 | [facility] | | | | + + + +-------+ + + + + | Result panel 47 | + + + + + +-------+ + + | Chloride | 2025-02-04 | | 102 | (missing) | (missing) | | SerPl-sCn | 08:28:07 | [facility] | | | | + + + +-------+ + + + + | Result panel 48 | + + + + + +------+ + + | CO2 | 2025-02-04 | | 35 | (missing) | (missing) | | SerPl-sCnc | 08:28:07 | [facility] | | | | + + + +------+ + + + + | Result panel 49 | + + + + + +-------+ + + | Anion Gap | 2025-02-04 | | 7.6 | (missing) | (missing) | | SerPl | 08:28:07 | [facility] | | | | | Calculated.4 | [facility]-s[facility]nc | [facility] | [facility] | | | | + + + +-------+ + + + + | Result panel 50 | + + + + + +-------+---------+ + | Calcium | 2025-02-04 | | 9.0 | mg/dL | (missing) | | SerPl-mCnc | 08:28:07 | [facility] | | | [facility] | | | | + + + +-------+---------+ + + + | Result panel 51 | + + + + + +-------+ + + | Prot | 2025-02-04 | | 5.5 | (missing) | (missing) | | SerPl-mCnc | 08:28:07 | [facility] | | | | + + + +-------+ + + + + | Result panel 52 | + + + + + +-------+ + + | Albumin | 2025-02-04 | | 2.1 | (missing) | (missing) | | [facility] | 08:28:07 | [facility] | | | | + + + +-------+ + + + + | Result panel 53 | + + + + + +-------+ + + | Globulin | 2025-02-04 | | 3.4 | (missing) | (missing) | | [facility] | 08:28:07 | [facility] | | | | + + + +-------+ + + + + | Result panel 54 | + + + + + +--------+ + + | | 2025-02-04 | | 0.62 | (missing) | (missing) | | Albumin/Glob | 08:28:07 | [facility] | | | | + + + +--------+ + + + + | Result panel 55 | + + + + + +-------+---------+ + | Bilirub | 2025-02-04 | | 0.3 | mg/dL | (missing) | | [facility] | 08:28:07 | [facility] | | | | + + + +-------+---------+ + + + | Result panel 56 | + + + + + +------+ + + | AST | 2025-02-04 | | 27 | (missing) | (missing) | | [facility] | 08:28:07 | [facility] | | | | + + + +------+ + + + + | Result panel 57 | + + + + + +-----+ + + | ALT | 2025-02-04 | | 5 | (missing) | (missing) | | [facility] | 08:28:07 | [facility] | | | | + + + +-----+ + + + + | Result panel 58 | + + + + + +-------+ + + | ALP | 2025-02-04 | | 196 | (missing) | (missing) | | [facility] | 08:28:07 | [facility] | | | | | | [facility] - [facility] | | | | + + + +-------+ + + + + | Result panel 59 | + + + + + +---------+ + + | WBC # Bld | 2025-02-04 | | 13.38 | (missing) | (missing) | | Auto | 08:28:07 | [facility] | | | | [facility] | | | | + + + +---------+ + + + + | Result panel 60 | + + + + + +--------+ + + | RBC # Bld | 2025-02-04 | | 4.38 | (missing) | (missing) | | Auto | 08:28:07 | [facility] | | | | + + + +--------+ + + + + | Result panel 61 | + + + + + +--------+ + + | Hgb | 2025-02-04 | | 13.6 | (missing) | (missing) | | Bld-Omid | 08:28:07 | [facility] | [facility] | | | | + + + +--------+ + + + + | Result panel 62 | + + + + + +--------+ + + | Hct VFr.DF | 2025-02-04 | | 40.8 | (missing) | (missing) | | Bld Auto | 08:28:07 | [facility] | | | | + + + +--------+ + + + + | Result panel 63 | + + + + + +--------+ + + | RBC Auto | 2025-02-04 | | 93.2 | (missing) | (missing) | | | 08:28:07 | [facility] | | | | + + + +--------+ + + + + | Result panel 64 | + + + + + +--------+ + + | MCH RBC Qn | 2025-02-04 | | 31.1 | (missing) | (missing) | | Auto | 08:28:07 | [facility] | | | | + + + +--------+ + + + + | Result panel 65 | + + + + + +--------+ + + | MCHC RBC | 2025-02-04 | | 33.3 | (missing) | (missing) | | Auto-EntMCnc | 08:28:07 | [facility] | | | | + + + +--------+ + + + + | Result panel 66 | + + + + + +-------+ + + | Platelet # | 2025-02-04 | | 395 | (missing) | (missing) | | Bld Auto | 08:28:07 | [facility] | | | | + + + +-------+ + + + + | Result panel 67 | + + + + + +--------+ + + | Neutrophils | 2025-02-04 | | 73.5 | (missing) | (missing) | | NFr Bld | 08:28:07 | [facility] | | | | | Auto | [facility] | | | | + + + +--------+ + + + + | Result panel 68 | + + + + + +--------+ + + | Lymphocytes | 2025-02-04 | | 13.5 | (missing) | (missing) | | NFr Bld | 08:28:07 | [facility] | | | | | Auto | [facility] | | | | + + + +--------+ + + + + | Result panel 69 | + + + + + +-------+ + + | Monocytes | 2025-02-04 | | 9.3 | (missing) | (missing) | | NFr Bld Auto | 08:28:07 | [facility] | | | | + + + +-------+ + + + + | Result panel 70 | + + + + + +-------+ + + | Eosinophil | 2025-02-04 | | 2.8 | (missing) | (missing) | | NFr Bld Auto | 08:28:07 | [facility] | | | | | | [facility] - [facility] | | | | + + + +-------+ + + + + | Result panel 71 | + + + + + +-------+ + + | Basophils | 2025-02-04 | | 0.5 | (missing) | (missing) | | NFr Bld Auto | 08:28:07 | [facility] | | | | + + + +-------+ + + + + | Result panel 72 | + + + + + +------+---------+ + | Glucose | 2025-02-04 | | 88 | mg/dL | (missing) | | Gregory-Omid | 08:28:07 | [facility] | | | | + + + +------+---------+ + + + | Result panel 73 | + + + + + +-----+---------+ + | BUN | 2025-02-04 | | 4 | mg/dL | (missing) | | SerPl-[facility] | 08:28:07 | [facility] | | | | + + + +-----+---------+ + + + | Result panel 74 | + + + + + +--------+---------+ + | Creat | 2025-02-04 | | 0.73 | mg/dL | (missing) | | [facility] | 08:28:07 | [facility] | | | | + + + +--------+---------+ + + + | Result panel 75 | + + + + + +------+ + + | eGFRcr | 2025-02-04 | | 88 | (missing) | (missing) | | SerPlBld | 08:28:07 | [facility] | | | | | CKD-EPI 2020 | [facility] | | | | + + + +------+ + + + + | Result panel 76 | + + + + + +--------+ + + | BUN/Creat | 2025-02-04 | | 5.47 | (missing) | (missing) | | SerPl | 08:28:07 | [facility] | | | | + + + +--------+ + + + + | Result panel 77 | + + + + + +-------+ + + | Sodium | 2025-02-04 | | 142 | (missing) | (missing) | | SerPl-sCnc | 08:28:07 | [facility] | | | | + + + +-------+ + + + + | Result panel 78 | + + + + + +-------+ + + | Potassium | 2025-02-04 | | 2.6 | (missing) | (missing) | | SerPl-sCnc | 08::07 | [facility] | | | | + + + +-------+ + + + + | Result panel 79 | + + + + + +-------+ + + | Chloride | 2025-02-04 | | 102 | (missing) | (missing) | | SerPl-sCnc | 08:28:07 | [facility] | | | | + + + +-------+ + + + + | Result panel 80 | + + + + + +------+ + + | CO2 | 2025-02-04 | | 35 | (missing) | (missing) | | SerPl-sCnc | 08:28:07 | [facility] | | | | + + + +------+ + + + + | Result panel 81 | + + + + + +-------+ + + | Anion Gap | 2025-02-04 | | 7.6 | (missing) | (missing) | | SerPl | 08:28:07 | [facility] | | | | | Calculated.4 | [facility] | | | | + + + +-------+ + + + + | Result panel 82 | + + + + + +-------+---------+ + | Calcium | 2025-02-04 | | 9.0 | mg/dL | (missing) | | SerPl-mCnc | 08:28:07 | [facility] | | | | + + + +-------+---------+ + + + | Result panel 83 | + + + + + +-------+ + + | Prot | 2025-02-04 | | 5.5 | (missing) | (missing) | | [facility] | 08:28:07 | [facility] | | | | + + + +-------+ + + + + | Result panel 84 | + + + + + +-------+ + + | Albumin | 2025-02-04 | | 2.1 | (missing) | (missing) | | SerPl-[facility] | 08:28:07 | [facility] | | | | + + + +-------+ + + + + | Result panel 85 | + + + + + +-------+ + + | Globulin | 2025-02-04 | | 3.4 | (missing) | (missing) | | Ser-[facility] | 08:28:07 | [facility] | | | | + + + +-------+ + + + + | Result panel 86 | + + + + + +--------+ + + | | 2025-02-04 | | 0.62 | (missing) | (missing) | | Albumin/Glob | 08:28:07 | [facility] | | | | | SerPl | [facility] | | | | + + + +--------+ + + + + | Result panel 87 | + + + + + +-------+---------+ + | Bilirub | 2025-02-04 | | 0.3 | mg/dL | (missing) | | SerPl-mCnc | 08:28:07 | [facility] | | | | + + + +-------+---------+ + + + | Result panel 88 | + + + + + +------+ + + | AST | 2025-02-04 | | 27 | (missing) | (missing) | | SerPl-[facility] | 08:28:07 | [facility] | | | | + + + +------+ + + + + | Result panel 89 | + + + + + +-----+ + + | ALT | 2025-02-04 | | 5 | (missing) | (missing) | | SerPl-cCn | 08:28:07 | [facility] | | | | + + + +-----+ + + + + | Result panel 90 | + + + + + +-------+ + + | ALP | 2025-02-04 | | 196 | (missing) | (missing) | | SerPl-cCnc | 08:28:07 | [facility] | | | | + + + +-------+ + + + + | Result panel 91 | + + + + + +---------+ + + | WBC # Bld | 2025-02-04 | | 13.38 | (missing) | (missing) | | Auto | 08:28:07 | [facility] | | | | + + + +---------+ + + + + | Result panel 92 | + + + + + +--------+ + + | RBC # Bld | 2025-02-04 | | 4.38 | (missing) | (missing) | | Auto | 08:28:07 | [facility] | | | | + + + +--------+ + + + + | Result panel 93 | + + + + + +--------+ + + | Hgb | 2025-02-04 | | 13.6 | (missing) | (missing) | | Bld-mCnc | 08:28:07 | [facility] | | | | + + + +--------+ + + + + | Result panel 94 | + + + + + +--------+ + + | Hct VFr.DF | 2025-02-04 | | 40.8 | (missing) | (missing) | | Bld Auto | 08:28:07 | [facility] | | | | + + + +--------+ + + + + | Result panel 95 | + + + + + +--------+ + + | RBC Auto | 2025-02-04 | | 93.2 | (missing) | (missing) | | | 08:28:07 | [facility] | | | | + + + +--------+ + + + + | Result panel 96 | + + + + + +--------+ + + | MCH RBC Qn | 2025-02-04 | | 31.1 | (missing) | (missing) | | Auto | 08:28:07 | [facility] | | | | + + + +--------+ + + + + | Result panel 97 | + + + + + +--------+ + + | MCHC RBC | 2025-02-04 | | 33.3 | (missing) | (missing) | | Auto-EntMCnc | 08:28:07 | [facility] | | | | + + + +--------+ + + + + | Result panel 98 | + + + + + +-------+ + + | Platelet # | 2025-02-04 | | 395 | (missing) | (missing) | | Bld Auto | 08:28:07 | [facility] | | | | + + + +-------+ + + + + | Result panel 99 | + + + + + +--------+ + + | Neutrophils | 2025-02-04 | | 73.5 | (missing) | (missing) | | NFr Bld | 08:28:07 | [facility] | | | | | Auto | [facility] | | | | + + + +--------+ + + + + | Result panel 100 | + + + + + +--------+ + + | Lymphocytes | 2025-02-04 | | 13.5 | (missing) | (missing) | | NFr Bld | 08:28:07 | [facility] | | | | | Auto | [facility] | | | | + + + +--------+ + + + + | Result panel 101 | + + + + + +-------+ + + | Monocytes | 2025-02-04 | | 9.3 | (missing) | (missing) | | NFr Bld Auto | 08:28:07 | [facility] | | | | + + + +-------+ + + + + | Result panel 102 | + + + + + +-------+ + + | Eosinophil | 2025-02-04 | | 2.8 | (missing) | (missing) | | NFr Bld Auto | 08:28:07 | [facility] | | | | + + + +-------+ + + + + | Result panel 103 | + + + + + +-------+ + + | Basophils | 2025-02-04 | | 0.5 | (missing) | (missing) | | NFr Bld Auto | 08:28:07 | [facility] | | | | + + + +-------+ + + + + | Result panel 104 | + + + + + +------+---------+ + | Glucose | 2025-02-04 | | 88 | mg/dL | (missing) | | SerPl-mCnc | 08:28:07 | [facility] | | | | + + + +------+---------+ + + + | Result panel 105 | + + + + + + + + + | Color Ur | 2025-02-06 | | YELLOW | (missing) | (missing) | | Auto | 14:11:07 | [facility] | | | | + + + + + + + + + | Result panel 106 | + + + + + + + + + | Character | 2025-02-06 | | CLOUDY | (missing) | (missing) | | Ur | 14:11:07 | [facility] | | | | + + + + + + + + + | Result panel 107 | + + + + + + + + + | Glucose Ur | 2025-02-06 | | NEGATIVE | (missing) | (missing) | | Ql Strip | 14:11:07 | [facility] | | | | + + + + + + + + + | Result panel 108 | + + + + + + + + + | Jone Chew | 2025-02-06 | | NEGATIVE | (missing) | (missing) | | Ql Strip | 14:11:07 | [facility] | | | | + + + + + + + + + | Result panel 109 | + + + + + + + + + | Ketoneleonarda Chew | 2025-02-06 | | NEGATIVE | (missing) | (missing) | | Ql Strip | 14:11:07 | [facility] | | | | + + + + + + + + + | Result panel 110 | + + + + + +---------+ + + | Sp Gr Ur | 2025-02-06 | | 1.010 | (missing) | (missing) | | Strip | 14:11:07 | [facility] | | | | + + + +---------+ + + + + | Result panel 111 | + + + + + + + + + | Hgb Ur Ql | 2025-02-06 | | MODERATE | (missing) | (missing) | | Strip | 14:11:07 | [facility] | | | | + + + + + + + + + | Result panel 112 | + + + + + +-------+ + + | pH Ur Strip | 2025-02-06 | | 6.5 | (missing) | (missing) | | | 14:11:07 | [facility] | | | | + + + +-------+ + + + + | Result panel 113 | + + + + + + + + + | Prot Ur | 2025-02-06 | | NEGATIVE | (missing) | (missing) | | Strip-mCnc | 14:11:07 | [facility] | | | | + + + + + + + + + | Result panel 114 | + + + + + + + + + | | 2025-02-06 | | NORMAL | (missing) | (missing) | | Urobilinogen | 14:11:07 | [facility] | | | | | Ur | [facility] Strip-[facility]nc | | [facility] | [facility] | | | [facility] | | | | + + + + + + + + + | Result panel 115 | + + + + + + + + + | Nitrite Ur | 2025-02-06 | | NEGATIVE | (missing) | (missing) | | Ql Strip | 14:11:07 | [facility] | | | | + + + + + + + + + | Result panel 116 | + + + + + +---------+ + + | Leukocyte | 2025-02-06 | | LARGE | (missing) | (missing) | | esterase Ur | 14:11:07 | [facility] | | | | | Ql Strip | [facility] | | | | + + + +---------+ + + + + | Result panel 117 | + + + + + +-------+ + + | RBC #/area | 2025-02-06 | | 4-6 | (missing) | (missing) | | UrnS HPF | 14:11:07 | [facility] | | | | + + + +-------+ + + + + | Result panel 118 | + + + + + +-------+ + + | WBC #/area | 2025-02-06 | | >50 | (missing) | (missing) | | UrnS HPF | 14:11:07 | [facility] | | | | [facility] | | | | + + + +-------+ + + + + | Result panel 119 | + + + + + + + + + | Epi Cells | 2025-02-06 | | NONE SEEN | (missing) | (missing) | | #/area UrnS | 14:11:07 | [facility] | | | | | HPF | [facility] | | | | + + + + + + + + + | Result panel 120 | + + + + + + + + + | Crystals | 2025-02-06 | | NONE SEEN | (missing) | (missing) | | UrnS Micro | 14:11:07 | [facility] | [facility] | | | | + + + + + + + + + | Result panel 121 | + + + + + +--------+ + + | Bacteria | 2025-02-06 | | RARE | (missing) | (missing) | | #/area UrnS | 14:11:07 | [facility] | | | | | HPF [facility] | | | | + + + +--------+ + + + + | Result panel 122 | + + + + + + + + + | Casts | 2025-02-06 | | NONE SEEN | (missing) | (missing) | | #/area UrnS | 14:11:07 | [facility] | | | | | LPF | [facility] | | | | + + + + + + + + + | Result panel 123 | + + + + + +-------+ + + | Bacteria Ur | 2025-02-06 | | Yes | (missing) | (missing) | | Cult | 14:11:07 | [facility] | | | | + + + +-------+ + + + + | Result panel 124 | + + + + + + + + + | Urn Spec | 2025-02-06 | | CLEAN CATCH | (missing) | (missing) | | Collect Meth | 14:11:07 | [facility] | | | | | Ur | [facility] | | | | + + + + + + + + + | Result panel 125 | + + + + + +---------+ + + | WBC # Bld | 2025-02-06 | | 15.64 | (missing) | (missing) | | Auto | 14:45:07 | [facility] | | | | + + + +---------+ + + + + | Result panel 126 | + + + + + +--------+ + + | RBC # Bld | 2025-02-06 | | 4.46 | (missing) | (missing) | | Auto | 14:45:07 | [facility] | | | | + + + +--------+ + + + + | Result panel 127 | + + + + + +--------+ + + | Hgb | 2025-02-06 | | 13.8 | (missing) | (missing) | | Bld-mCnc | 14:45:07 | [facility] | | | | + + + +--------+ + + + + | Result panel 128 | + + + + + +--------+ + + | Hct VFr.DF | 2025-02-06 | | 43.0 | (missing) | (missing) | | Bld Auto | 14:45:07 | [facility] | | | | + + + +--------+ + + + + | Result panel 129 | + + + + + +--------+ + + | RBC Auto | 2025-02-06 | | 96.4 | (missing) | (missing) | | | 14:45:07 | [facility] | | | | + + + +--------+ + + + + | Result panel 130 | + + + + + +--------+ + + | MCH RBC Qn | 2025-02-06 | | 30.9 | (missing) | (missing) | | Auto | 14:45:07 | [facility] | | | | + + + +--------+ + + + + | Result panel 131 | + + + + + +--------+ + + | MCHC RBC | 2025-02-06 | | 32.1 | (missing) | (missing) | | Auto-EntMCnc | 14:45:07 | [facility] | | | | + + + +--------+ + + + + | Result panel 132 | + + + + + +-------+ + + | Platelet # | 2025-02-06 | | 301 | (missing) | (missing) | | Bld Auto | 14:45:07 | [facility] | | | | + + + +-------+ + + + + | Result panel 133 | + + + + + +--------+ + + | Neutrophils | 2025-02-06 | | 80.9 | (missing) | (missing) | | NFr Bld | 14:45:07 | [facility] | | | | | Auto | [facility] | | | | + + + +--------+ + + + + | Result panel 134 | + + + + + +-------+ + + | Lymphocytes | 2025-02-06 | | 8.6 | (missing) | (missing) | | NFr Bld | 14:45:07 | [facility] | | | | | Auto | [facility] | | | | + + + +-------+ + + + + | Result panel 135 | + + + + + +-------+ + + | Monocytes | 2025-02-06 | | 9.3 | (missing) | (missing) | | NFr Bld Auto | 14:45:07 | [facility] | | | | + + + +-------+ + + + + | Result panel 136 | + + + + + +-------+ + + | Eosinophil | 2025-02-06 | | 0.4 | (missing) | (missing) | | NFr Bld Auto | 14:45:07 | [facility] | | | | + + + +-------+ + + + + | Result panel 137 | + + + + + +-------+ + + | Basophils | 2025-02-06 | | 0.4 | (missing) | (missing) | | NFr Bld Auto | 14:45:07 | [facility] | | | | + + + +-------+ + + + + | Result panel 138 | + + + + + +-------+---------+ + | Glucose | 2025-02-06 | | 118 | mg/dL | (missing) | | SerPl-mCnc | 14:45:07 | [facility] | | | | + + + +-------+---------+ + + + | Result panel 139 | + + + + + +-----+---------+ + | BUN | 2025-02-06 | | 4 | mg/dL | (missing) | | SerPl-mCnc | 14:45:07 | [facility] | | | | + + + +-----+---------+ + + + | Result panel 140 | + + + + + +--------+---------+ + | Creat | 2025-02-06 | | 0.92 | mg/dL | (missing) | | SerPl-mCnc | 14:45:07 | [facility] | | | | + + + +--------+---------+ + + + | Result panel 141 | + + + + + +------+ + + | eGFRcr | 2025-02-06 | | 67 | (missing) | (missing) | | SerPlBld | 14:45:07 | [facility] | | | | | CKD-EPI 2020 | [facility] | | | | + + + +------+ + + + + | Result panel 142 | + + + + + +--------+ + + | BUN/Creat | 2025-02-06 | | 4.34 | (missing) | (missing) | | SerPl | 14:45:07 | [facility] | | | | + + + +--------+ + + + + | Result panel 143 | + + + + + +-------+ + + | Sodium | 2025-02-06 | | 134 | (missing) | (missing) | | SerPl-sCnc | 14:45:07 | [facility] | | | | + + + +-------+ + + + + | Result panel 144 | + + + + + +-------+ + + | Potassium | 2025-02-06 | | 4.5 | (missing) | (missing) | | SerPl-sCnc | 14:45:07 | [facility] | | | | + + + +-------+ + + + + | Result panel 145 | + + + + + +-------+ + + | Chloride | 2025-02-06 | | 102 | (missing) | (missing) | | SerPl-sCnc | 14:45:07 | [facility] | | | | + + + +-------+ + + + + | Result panel 146 | + + + + + +------+ + + | CO2 | 2025-02-06 | | 28 | (missing) | (missing) | | [facility] | 14:45:07 | [facility] | | | | + + + +------+ + + + + | Result panel 147 | + + + + + +-------+ + + | Anion Gap | 2025-02-06 | | 8.5 | (missing) | (missing) | | [facility] | 14:45:07 | [facility] | | | | | Calculated.4 | [facility] | | | | + + + +-------+ + + + + | Result panel 148 | + + + + + +-------+---------+ + | Calcium | 2025-02-06 | | 9.1 | mg/dL | (missing) | | [facility] | 14:45:07 | [facility] | | | | + + + +-------+---------+ + + + | Result panel 149 | + + + + + +-------+ + + | Prot | 2025-02-06 | | 5.7 | (missing) | (missing) | | [facility] | 14:45:07 | [facility] | | | | + + + +-------+ + + + + | Result panel 150 | + + + + + +-------+ + + | Albumin | 2025-02-06 | | 2.1 | (missing) | (missing) | | [facility] | 14:45:07 | [facility] | | | | + + + +-------+ + + + + | Result panel 151 | + + + + + +-------+ + + | Globulin | 2025-02-06 | | 3.6 | (missing) | (missing) | | [facility] | 14:45:07 | [facility] | | | | + + + +-------+ + + + + | Result panel 152 | + + + + + +--------+ + + | | 2025-02-06 | | 0.58 | (missing) | (missing) | | Albumin/Glob | 14:45:07 | [facility] | | | | + + + +--------+ + + + + | Result panel 153 | + + + + + +-------+---------+ + | Bilirub | 2025-02-06 | | 0.2 | mg/dL | (missing) | | [facility] | 14:45:07 | [facility] | | | | + + + +-------+---------+ + + + | Result panel 154 | + + + + + +------+ + + | AST | 2025-02-06 | | 24 | (missing) | (missing) | | [facility] | 14:45:07 | [facility] | [facility] | | | | + + + +------+ + + + + | Result panel 155 | + + + + + +------+ + + | ALT | 2025-02-06 | | 19 | (missing) | (missing) | | [facility] | 14:45:07 | [facility] | | | | + + + +------+ + + + + | Result panel 156 | + + + + + +-------+ + + | ALP | 2025-02-06 | | 202 | (missing) | (missing) | | [facility] | 14:45:07 | [facility] | | | | + + + +-------+ + + + + | Result panel 157 | + + + + + +--------+ + + | WBC # Bld | 2025-02-07 | | 9.47 | (missing) | (missing) | | Auto | 11:42:07 | [facility] | | | | + + + +--------+ + + + + | Result panel 158 | + + + + + +--------+ + + | Lymphocytes | 2025-02-07 | | 15.1 | (missing) | (missing) | | NFr Bld | 11:42:07 | [facility] | | | | | [facility] | | | | + + + +--------+ + + + + | Result panel 159 | + + + + + +--------+ + + | Monocytes | 2025-02-07 | | 11.5 | (missing) | (missing) | | NFr Bld Auto | 11:42:07 | [facility] | | | | + + + +--------+ + + + + | Result panel 160 | + + + + + +-------+ + + | Eosinophil | 2025-02-07 | | 0.5 | (missing) | (missing) | | NFr Bld Auto | 11:42:07 | [facility] | | | | + + + +-------+ + + + + | Result panel 161 | + + + + + +-------+ + + | Basophils | 2025-02-07 | | 0.5 | (missing) | (missing) | | NFr Bld Auto | 11:42:07 | [facility] | | | | + + + +-------+ + + + + | Result panel 162 | + + + + + +--------+ + + | RBC # Bld | 2025-02-07 | | 4.22 | (missing) | (missing) | | Auto | 11:42:07 | [facility] | | | | + + + +--------+ + + + + | Result panel 163 | + + + + + +--------+ + + | Hgb | 2025-02-07 | | 13.3 | (missing) | (missing) | | Bld[facility] | 11:42:07 | [facility] | | | | + + + +--------+ + + + + | Result panel 164 | + + + + + +------+---------+ + | Glucose | 2025-02-07 | | 76 | mg/dL | (missing) | | SerPl-mCnc | 11:42:07 | [facility] | | | | + + + +------+---------+ + + + | Result panel 165 | + + + + + +-----+---------+ + | BUN | 2025-02-07 | | 5 | mg/dL | (missing) | | SerPl-mCnc | 11:42:07 | [facility] | | | | + + + +-----+---------+ + + + | Result panel 166 | + + + + + +--------+---------+ + | Creat | 2025-02-07 | | 0.82 | mg/dL | (missing) | | SerPl-[facility] | 11:42:07 | [facility] | | | | | | [facility] - [facility] | | | | [facility] | | | | + + + +--------+---------+ + + + | Result panel 167 | + + + + + +------+ + + | eGFRcr | 2025-02-07 | | 77 | (missing) | (missing) | | SerPlBld | 11:42:07 | [facility] | | | | | CKD-EPI 2020 | [facility] | | | | + + + +------+ + + + + | Result panel 168 | + + + + + +--------+ + + | BUN/Creat | 2025-02-07 | | 6.09 | (missing) | (missing) | | SerPl | 11:42:07 | [facility] | | | | + + + +--------+ + + + + | Result panel 169 | + + + + + +-------+ + + | Sodium | 2025-02-07 | | 135 | (missing) | (missing) | | SerPl-sCnc | 11:42:07 | [facility] | | | | + + + +-------+ + + + + | Result panel 170 | + + + + + +--------+ + + | Hct VFr.DF | 2025-02-07 | | 40.5 | (missing) | (missing) | | Bld Auto | 11:42:07 | [facility] | | | | + + + +--------+ + + + + | Result panel 171 | + + + + + +-------+ + + | Potassium | 2025-02-07 | | 4.2 | (missing) | (missing) | | SerPl-sCnc | 11:42:07 | [facility] | | | | + + + +-------+ + + + + | Result panel 172 | + + + + + +-------+ + + | Chloride | 2025-02-07 | | 102 | (missing) | (missing) | | SerPl-[facility] | 11:42:07 | [facility] | | | | + + + +-------+ + + + + | Result panel 173 | + + + + + +------+ + + | CO2 | 2025-02-07 | | 28 | (missing) | (missing) | | SerPl-sCnc | 11:42:07 | [facility] | | | | + + + +------+ + + + + | Result panel 174 | + + + + + +-------+ + + | Anion Gap | 2025-02-07 | | 9.2 | (missing) | (missing) | | SerPl | 11:42:07 | [facility] | | | | | Calculated.4 | | [facility] | | [facility] | | [facility] | | | [facility] | | | | + + + +-------+ + + + + | Result panel 175 | + + + + + +-------+---------+ + | Calcium | 2025-02-07 | | 9.1 | mg/dL | (missing) | | SerPl-mCnc | 11:42:07 | [facility] | | | | + + + +-------+---------+ + + + | Result panel 176 | + + + + + +-------+ + + | Prot | 2025-02-07 | | 5.7 | (missing) | (missing) | | SerPl-mCnc | 11:42:07 | [facility] | | | | + + + +-------+ + + + + | Result panel 177 | + + + + + +-------+ + + | Albumin | 2025-02-07 | | 2.1 | (missing) | (missing) | | [facility] | 11:42:07 | [facility] | [facility] | | | | + + + +-------+ + + + + | Result panel 178 | + + + + + +-------+ + + | Globulin | 2025-02-07 | | 3.6 | (missing) | (missing) | | Ser-mCmaverick | 11:42:07 | [facility] | [facility] | | | | + + + +-------+ + + + + | Result panel 179 | + + + + + +--------+ + + | | 2025-02-07 | | 0.58 | (missing) | (missing) | | Albumin/Glob | 11:42:07 | [facility] | | | | | SerPl | [facility] | | | | + + + +--------+ + + + + | Result panel 180 | + + + + + +-------+---------+ + | Jone | 2025-02-07 | | 0.2 | mg/dL | (missing) | | SerPl-mCnc | 11:42:07 | [facility] | | | | + + + +-------+---------+ + + + | Result panel 181 | + + + + + +--------+ + + | RBC Auto | 2025-02-07 | | 96.0 | (missing) | (missing) | | | 11:42:07 | [facility] | | | | + + + +--------+ + + + + | Result panel 182 | + + + + + +------+ + + | AST | 2025-02-07 | | 29 | (missing) | (missing) | | SerPl-cCnc | 11:42:07 | [facility] | | | | + + + +------+ + + + + | Result panel 183 | + + + + + +------+ + + | ALT | 2025-02-07 | | 20 | (missing) | (missing) | | SerPl-cCnc | 11:42:07 | [facility] | | | | + + + +------+ + + + + | Result panel 184 | + + + + + +-------+ + + | ALP | 2025-02-07 | | 196 | (missing) | (missing) | | SerPl-cCnc | 11:42:07 | [facility] | | | | + + + +-------+ + + + + | Result panel 185 | + + + + + +--------+ + + | MCH RBC Qn | 2025-02-07 | | 31.5 | (missing) | (missing) | | Auto | 11:42:07 | [facility] | | | | + + + +--------+ + + + + | Result panel 186 | + + + + + +--------+ + + | MCHC RBC | 2025-02-07 | | 32.8 | (missing) | (missing) | | Auto-EntMCnc | 11:42:07 | [facility] | | | | + + + +--------+ + + + + | Result panel 187 | + + + + + +-------+ + + | Platelet # | 2025-02-07 | | 277 | (missing) | (missing) | | Bld Auto | 11:42:07 | [facility] | | | | + + + +-------+ + + + + | Result panel 188 | + + + + + +--------+ + + | Neutrophils | 2025-02-07 | | 71.8 | (missing) | (missing) | | NFr Bld | 11:42:07 | [facility] | | | | | Auto | [facility] | | | | + + + +--------+ + + + + | Result panel 189 | + + + + + + + + + | Color Ur | 2025-02-07 | | YELLOW | (missing) | (missing) | | Auto | 13:15:07 | [facility] | | | | + + + + + + + + + | Result panel 190 | + + + + + +---------+ + + | Character | 2025-02-07 | | CLEAR | (missing) | (missing) | | Ur | 13:15:07 | [facility] | | [facility] | | | | + + + +---------+ + + + + | Result panel 191 | + + + + + + + + + | Glucose Ur | 2025-02-07 | | NEGATIVE | (missing) | (missing) | | Ql Strip | 13:15:07 | [facility] | [facility] | [facility] | | | | + + + + + + + + + | Result panel 192 | + + + + + + + + + | Biledwigeub Ur | 2025-02-07 | | NEGATIVE | (missing) | (missing) | | Ql Strip | 13:15:07 | [facility] | [facility] | | | | + + + + + + + + + | Result panel 193 | + + + + + + + + + | Ketoneleonarda Ur | 2025-02-07 | | NEGATIVE | (missing) | (missing) | | Ql Strip | 13:15:07 | [facility] | | [facility] | | | | + + + + + + + + + | Result panel 194 | + + + + + +---------+ + + | [facility] | 2025-02-07 | | 1.020 | (missing) | (missing) | | Strip | 13:15:07 | [facility] | | | | + + + +---------+ + + + + | Result panel 195 | + + + + + + + + + | Hgb Ur Ql | 2025-02-07 | | TRACE-I | (missing) | (missing) | | Strip | 13:15:07 | [facility] | | | [facility] | | | | + + + + + + + + + | Result panel 196 | + + + + + +-------+ + + | pH Ur Strip | 2025-02-07 | | 7.5 | (missing) | (missing) | | | 13:15:07 | [facility] | | | | | | | - | | | | | | | [facility] | | | [facility] | | | [facility] | | | | + + + +-------+ + + + + | Result panel 197 | + + + + + + + + + | Prot Ur | 2025-02-07 | | NEGATIVE | (missing) | (missing) | | Strip-mCnc | 13:15:07 | [facility] | | | | [facility] | | | | + + + + + + + + + | Result panel 198 | + + + + + + + + + | | 2025-02-07 | | NORMAL | (missing) | (missing) | | Urobilinogen | 13:15:07 | [facility] | | | | | Ur | | - [facility] | [facility] Strip-[facility]nc | | Ez | | | | | | | Hospital | | | | + + + + + + + + + | Result panel 199 | + + + + + + + + + | Nitrite Ur | 2025-02-07 | | NEGATIVE | (missing) | (missing) | | Ql Strip | 13:15:07 | [facility] | | | | | | [facility] | [facility] | | | | + + + + + + + + + | Result panel 200 | + + + + + +---------+ + + | Leukocyte | 2025-02-07 | | SMALL | (missing) | (missing) | | esterase Ur | 13:15:07 | [facility] | | | | | Ql Strip | [facility] | | | | + + + +---------+ + + + + | Result panel 201 | + + + + + +-------+ + + | RBC #/area | 2025-02-07 | | 0-1 | (missing) | (missing) | | UrnS HPF | 13:15:07 | [facility] | | | | | [facility] | | | | + + + +-------+ + + + + | Result panel 202 | + + + + + +-------+ + + | WBC #/area | 2025-02-07 | | >50 | (missing) | (missing) | | Bi [facility] | 13:15:07 | [facility] - | | | | | | | [facility] | | | [facility] | | [facility] | | | | + + + +-------+ + + + + | Result panel 203 | + + + + + + + + + | Epi Cells | 2025-02-07 | | SQUAMOUS 1+ | (missing) | (missing) | | #/area UrnS | 13:15:07 | [facility] | | | | | HPF | | - | | | | | | | Ez | | | | | | | Hospital | | | | + + + + + + + + + | Result panel 204 | + + + + + + + + + | Crystals | 2025-02-07 | | NONE SEEN | (missing) | (missing) | | UrnS Micro | 13:15:07 | [facility] | | | | | | [facility] | | | [facility] | | | | + + + + + + + + + | Result panel 205 | + + + + + +------+ + + | Bacteria | 2025-02-07 | | 1+ | (missing) | (missing) | | #/area UrnS | 13:15:07 | [facility] | | | | | HPF | [facility] | | [facility] | | | [facility] | | | | + + + +------+ + + + + | Result panel 206 | + + + + + + + + + | Casts | 2025-02-07 | | NONE SEEN | (missing) | (missing) | | #/area UrnS | 13:15:07 | [facility] | | | | | LPF | [facility] | | | | | | [facility] | | | | + + + + + + + + + | Result panel 207 | + + + + + +-------+ + + | Bacteria Ur | 2025-02-07 | | Yes | (missing) | (missing) | | Cult | 13:15:07 | [facility] | | | | | | [facility] | [facility] | | | | + + + +-------+ + + + + | Result panel 208 | + + + + + + + + + | Urn Spec | 2025-02-07 | | CLEAN CATCH | (missing) | (missing) | | Collect Meth | 13:15:07 | [facility] | | | | | Ur | | - [facility] | | | | | | | Hospital | | | | + + + + + + + + + | Result panel 209 | + + + + + + + + + | | 2025-02-07 | | NEGATIVE | (missing) | (missing) | | Amphetamines | 13:15:07 | [facility] | | | | | Ur Ql | | - Saint | | | | | Scn>500 | | Ez | | | | | ng/mL | | Hospital | | | | + + + + + + + + + | Result panel 210 | + + + + + + + + + | | 2025-02-07 | | NEGATIVE | (missing) | (missing) | | Barbiturates | 13:15:07 | [facility] | | | | | Ur Ql | | - Saint | | | | | Scn>300 | | Ez | | | | | ng/mL | | Hospital | | | | + + + + + + + + + | Result panel 211 | + + + + + + + + + | Benzodiaz | 2025-02-07 | | NEGATIVE | (missing) | (missing) | | Ur Ql | 13:15:07 | [facility] | | | | | Scn>300 | | - Saint | | | | | ng/mL | | Ez | | | | | | | Hospital | | | | + + + + + + + + + | Result panel 212 | + + + + + + + + + | Cocaine Ur | 2025-02-07 | | NEGATIVE | (missing) | (missing) | | Ql Scn | 13:15:07 | [facility] | | | | | | [facility] | [facility] | | | [facility] | | | | + + + + + + + + + | Result panel 213 | + + + + + + + + + | | 2025-02-07 | | NEGATIVE | (missing) | (missing) | | Buprenorphin | 13:15:07 | [facility] | | | | | e Ur Ql Scn | [facility] - [facility] | | | | | | | Hospital | | | | + + + + + + + + + | Result panel 214 | + + + + + + + + + | oxyCODONE | 2025-02-07 | | NEGATIVE | (missing) | (missing) | | Ur Ql Scn | 13:15:07 | [facility] | | | | | | [facility] | | [facility] | | | [facility] | | | | + + + + + + + + + | Result panel 215 | + + + + + + + + + | MDMA Ur Ql | 2025-02-07 | | NEGATIVE | (missing) | (missing) | | Scn | 13:15:07 | [facility] | | | | | | [facility] | | [facility] | | | | + + + + + + + + + | Result panel 216 | + + + + + + + + + | Methadone | 2025-02-07 | | NEGATIVE | (missing) | (missing) | | Ur Ql | 13:15:07 | [facility] | | | | | Scn>300 | | - [facility] | | | | | ng/mL | | [facility] | | | | | | | Hospital | | | | + + + + + + + + + | Result panel 217 | + + + + + + + + + | Opiates Ur | 2025-02-07 | | NEGATIVE | (missing) | (missing) | | Ql Scn | 13:15: | [facility] | | | | [facility] | [facility] | | [facility] | | | | + + + + + + + + + | Result panel 218 | + + + + + + + + + | PCP Ur Ql | 2025-02-07 | | NEGATIVE | (missing) | (missing) | | Scn>25 ng/mL | 13:15:07 | [facility] | | | | | | [facility] | [facility] | | | | + + + + + + + + + | Result panel 219 | + + + + + + + + + | THC Ur Ql | 2025-02-07 | | NEGATIVE | (missing) | (missing) | | Scn>50 ng/mL | 13:15:07 | [facility] | | [facility] | | | [facility] | | | | + + + + + + + + + | Result panel 220 | + + + + + + + + + | fentaNYL Ur | 2025-02-07 | | NEGATIVE | (missing) | (missing) | | Ql Scn | 13:15:07 | [facility] | | | | | | - | | | | | | | [facility] | | | | | | | [facility] | | | | + + + + + + + + + | Result panel 221 | + + + + + + + + + | Bacteria Ur | 2025-02-07 | | JIM | (missing) | (missing) | | Cult | 13:15:07 | [facility] | [facility] | | | | | | - | | | | | | | [facility] | | | | | | | [facility] | | | | + + + + + + + Social History +--------+ + + | date | description | facility | +--------+ + + Vital Signs + + + +---------+ | date | measurement | value | units | + + + +---------+ | 2025-01-26 00:00 | BMI | 19.7 | kg/m2 | + + + +---------+ | 2025-01-26 00:00 | BP_diastolic | 74 | mmHg | + + + +---------+ | 2025-01-26 00:00 | BP_systolic | 111 | mmHg | + + + +---------+ | 2025-01-26 00:00 | heart_rate | 72 | /min | + + + +---------+ | 2025-01-26 00:00 | height_metric | 162.56 | cm | + + + +---------+ | 2025-01-26 00:00 | height_standard | 64 | in | + + + +---------+ | 2025-01-26 00:00 | o2_saturation | 95 | % | + + + +---------+ | 2025-01-26 00:00 | respiration_rate | 16 | /min | + + + +---------+ | 2025-01-26 00:00 | | 98 | F | | | temperature_standar | | | | | d | | | + + + +---------+ | 2025-01-26 00:00 | weight_metric | 51.999 | kg | + + + +---------+ | 2025-01-26 00:00 | weight_standard | 114.637 | lb | + + + +---------+ | 2025-02-04 00:00 | BMI | 20.8 | kg/m2 | + + + +---------+ | 2025-02-04 00:00 | BP_diastolic | 100 | mmHg | + + + +---------+ | 2025-02-04 00:00 | BP_diastolic | 92 | mmHg | + + + +---------+ | 2025-02-04 00:00 | BP_systolic | 156 | mmHg | + + + +---------+ | 2025-02-04 00:00 | BP_systolic | 161 | mmHg | + + + +---------+ | 2025-02-04 00:00 | heart_rate | 80 | /min | + + + +---------+ | 2025-02-04 00:00 | height_metric | 162.56 | cm | + + + +---------+ | 2025-02-04 00:00 | height_standard | 64 | in | + + + +---------+ | 2025-02-04 00:00 | o2_saturation | 96 | % | + + + +---------+ | 2025-02-04 00:00 | respiration_rate | 14 | /min | + + + +---------+ | 2025-02-04 00:00 | respiration_rate | 19 | /min | + + + +---------+ | 2025-02-04 00:00 | | 98.3 | F | | | temperature_standar | | | | | d | | | + + + +---------+ | 2025-02-04 00:00 | | 98.4 | F | | | temperature_standar | | | | | d | | | + + + +---------+ | 2025-02-04 00:00 | weight_metric | 55.001 | kg | + + + +---------+ | 2025-02-04 00:00 | weight_standard | 121.256 | lb | + + + +---------+ | 2025-02-05 00:00 | BMI | 20.1 | kg/m2 | + + + +---------+ | 2025-02-05 00:00 | BP_diastolic | 102 | mmHg | + + + +---------+ | 2025-02-05 00:00 | BP_diastolic | 90 | mmHg | + + + +---------+ | 2025-02-05 00:00 | BP_systolic | 145 | mmHg | + + + +---------+ | 2025-02-05 00:00 | heart_rate | 103 | /min | + + + +---------+ | 2025-02-05 00:00 | heart_rate | 104 | /min | + + + +---------+ | 2025-02-05 00:00 | height_metric | 162.56 | cm | + + + +---------+ | 2025-02-05 00:00 | height_standard | 64 | in | + + + +---------+ | 2025-02-05 00:00 | o2_saturation | 100 | % | + + + +---------+ | 2025-02-05 00:00 | o2_saturation | 97 | % | + + + +---------+ | 2025-02-05 00:00 | respiration_rate | 17 | /min | + + + +---------+ | 2025-02-05 00:00 | respiration_rate | 18 | /min | + + + +---------+ | 2025-02-05 00:00 | | 98.2 | F | | | temperature_standar | | | | | d | | | + + + +---------+ | 2025-02-05 00:00 | weight_metric | 53.201 | kg | + + + +---------+ | 2025-02-05 00:00 | weight_standard | 117.287 | lb | + + + +---------+ | 2025-02-06 00:00 | BMI | 20.1 | kg/m2 | + + + +---------+ | 2025-02-06 00:00 | BP_diastolic | 61 | mmHg | + + + +---------+ | 2025-02-06 00:00 | BP_systolic | 166 | mmHg | + + + +---------+ | 2025-02-06 00:00 | heart_rate | 86 | /min | + + + +---------+ | 2025-02-06 00:00 | height_metric | 162.56 | cm | + + + +---------+ | 2025-02-06 00:00 | height_standard | 64 | in | + + + +---------+ | 2025-02-06 00:00 | o2_saturation | 100 | % | + + + +---------+ | 2025-02-06 00:00 | respiration_rate | 16 | /min | + + + +---------+ | 2025-02-06 00:00 | | 97.3 | F | | | temperature_standar | | | | | d | | | + + + +---------+ | 2025-02-06 00:00 | weight_metric | 53.201 | kg | + + + +---------+ | 2025-02-06 00:00 | weight_standard | 117.287 | lb | + + + +---------+ | 2025-02-07 00:00 | BMI | 20.1 | kg/m2 | + + + +---------+ | 2025-02-07 00:00 | BP_diastolic | 90 | mmHg | + + + +---------+ | 2025-02-07 00:00 | BP_systolic | 151 | mmHg | + + + +---------+ | 2025-02-07 00:00 | heart_rate | 104 | /min | + + + +---------+ | 2025-02-07 00:00 | height_metric | 162.56 | cm | + + + +---------+ | 2025-02-07 00:00 | height_standard | 64 | in | + + + +---------+ | 2025-02-07 00:00 | o2_saturation | 98 | % | + + + +---------+ | 2025-02-07 00:00 | respiration_rate | 19 | /min | + + + +---------+ | 2025-02-07 00:00 | | 97.9 | F | | | temperature_standar | | | | | d | | | + + + +---------+ | 2025-02-07 00:00 | weight_metric | 53.201 | kg | + + + +---------+ | 2025-02-07 00:00 | weight_standard | 117.287 | lb | + + + +---------+ | 2025-02-23 00:00 | BMI | 18.5 | kg/m2 | + + + +---------+ | 2025-02-23 00:00 | BP_diastolic | 72 | mmHg | + + + +---------+ | 2025-02-23 00:00 | BP_systolic | 120 | mmHg | + + + +---------+ | 2025-02-23 00:00 | heart_rate | 80 | /min | + + + +---------+ | 2025-02-23 00:00 | height_metric | 162.56 | cm | + + + +---------+ | 2025-02-23 00:00 | height_standard | 64 | in | + + + +---------+ | 2025-02-23 00:00 | o2_saturation | 97 | % | + + + +---------+ | 2025-02-23 00:00 | respiration_rate | 15 | /min | + + + +---------+ | 2025-02-23 00:00 | | 98.1 | F | | | temperature_standar | | | | | d | | | + + + +---------+ | 2025-02-23 00:00 | weight_metric | 48.9 | kg | + + + +---------+ | 2025-02-23 00:00 | weight_standard | 107.806 | lb | + + + +---------+"
--- OUTSIDE RECORDS SUMMARY | 2025-03-21 13:27 | XMS ---
PreManage Notification: CHITRA ALVAREZ Security Cigarette Making Machine Operator Events No recent Security Events currently on file CRITERIA MET - 6 ED Visits in 6 Months - [facility] - 2 Visits in 30 Days CARE PROVIDERS TACHO GARYA Nurse Practitioner: Family [facility] PHONE: [phone] LUCY ACKERMAN Physician Publicity Manager Drea GERBER PHONE: [phone] MARTINA PAUL Nurse Practitioner: Adult Health [facility] PHONE: [phone] Mynor has no Care Guidelines for this patient. E.D. VISIT COUNT (12 MO.) [address] [facility] T[facility] NOTE: Visits indicate total known visits. ED/UCC VISIT TRACKING (12 MO.) 03/21/2025 13:21 NADJA Vaz[place] TYPE: Emergency COMPLAINT: - URINE PROBLEM 02/23/2025 14:05 NADJA Vazquez [place] TYPE: Emergency COMPLAINT: - CATHETER PROBLEM DIAGNOSES: - Allergy status to narcotic agent - halfway (current) use of bisphosphonates - Nicotine dependence, unspecified, uncomplicated - Other custodial (current) drug therapy - Other mechanical complication of cystostomy catheter, initial encounter - Retention of urine, unspecified 02/08/2025 12:01 [facility] [place] TYPE: Emergency DIAGNOSES: - Breakdown (mechanical) of cystostomy catheter, initial encounter - Weakness - ALTERED MENTAL STATUS 02/07/2025 10:[address] [facility] [place] TYPE: Emergency COMPLAINT: - FALL DIAGNOSES: - Adult failure to thrive - Allergy status to narcotic agent - Body mass index [BMI] 20.0-20.9, adult - Encounter for examination and observation following other accident - History of falling - halfway (current) use of bisphosphonates - Nicotine dependence, unspecified, uncomplicated - Other buttermaker (current) drug therapy - Unspecified complication of genitourinary prosthetic device, implant and graft, initial encounter - Weakness 02/06/2025 13:30 NADJA Vazquez [place] TYPE: Emergency COMPLAINT: - URINE PROBLEM DIAGNOSES: - Allergy status to narcotic agent - Displacement of cystostomy catheter, initial encounter - halfway (current) use of bisphosphonates - Nicotine dependence, unspecified, uncomplicated - Other buttermaker (current) drug therapy - Other mechanical complication of cystostomy catheter, initial encounter - Urinary tract infection, site not specified 02/05/2025 09:23 NADJA Vaz[place] TYPE: Emergency COMPLAINT: - CATHETER PROBLEM DIAGNOSES: - Allergy status to narcotic agent - regional intermodal truck driver (current) use of bisphosphonates - Nicotine dependence, unspecified, uncomplicated - Other custodial (current) drug therapy - Unspecified cystostomy status - Weakness 02/04/2025 07:00 NADJA Vaz[place] TYPE: Emergency COMPLAINT: - FALL DIAGNOSES: - Allergy status to narcotic agent - Hypokalemia - Nicotine dependence, unspecified, uncomplicated - Other custodial (current) drug therapy - Repeated falls - Urinary tract infection, site not specified - Weakness 01/26/2025 13:10 NADJA Vaz[facility] [place] TYPE: Emergency COMPLAINT: - RT EAR PAIN DIAGNOSES: - Allergy status to narcotic agent - Epilepsy, unspecified, not intractable, without status epilepticus - Nicotine dependence, unspecified, uncomplicated - Otalgia, right ear - Other custodial (current) drug therapy - Otitis media, unspecified, right ear 10/27/2024 09:15 NADJA Vaz[place] TYPE: Emergency COMPLAINT: - URINARY PROBLEM DIAGNOSES: - Allergy status to narcotic agent - Altered mental status, unspecified - Encephalopathy, unspecified - Nicotine dependence, unspecified, uncomplicated - Other custodial (current) drug therapy INPATIENT VISIT TRACKING (12 MO.) 10/27/2024 16:34 [facility] DENAE Johnson TYPE: Neurology DIAGNOSES: - Candidal stomatitis - Cannabis use, unspecified, uncomplicated - Depression, unspecified - Disorientation, unspecified - Encephalopathy, unspecified - Essential (primary) hypertension - Generalized anxiety disorder - Generalized idiopathic epilepsy and epileptic syndromes, not intractable, without status epilepticus - Metabolic encephalopathy - Other cystostomy status - Other buttermaker (current) drug therapy - Other specified hypothyroidism - Personal history of traumatic brain injury - Sedative, hypnotic or anxiolytic dependence, uncomplicated - Urinary tract infection, site not specified - AMS [id number]
[2025-03-21 16:41] VITALS: BP 135/90
[2025-03-21] MEDS ORDERED: CEPHALEXIN500 M1 PO (23:41)
== END 2025-03-21 16:30 | disposition home or self-care (01) ==
LOC: ED 13:20
DX: T83.89XA Other specified complication of genitourinary prosthetic devices, implants and grafts, initial encounter (principal); Y84.6 Urinary catheterization as the cause of abnormal reaction of the patient, or of later complication, without mention of misadventure at the time of the procedure; F17.200 Nicotine dependence, unspecified, uncomplicated; Z88.5 Allergy status to narcotic agent; Z79.899 Other long term (current) drug therapy
CPT/HCPCS: 51700; 99283-25

== ENCOUNTER 2025-03-21 20:10 | Emergency (ER) | payer MEDICARE, OTHER ==
[~2025-03-21] VITALS: Ht 162.6 cm; Wt 55.0 kg
--- OUTSIDE RECORDS SUMMARY | ~2025-03-21 | XMS | Continuity of Care Document ---
Demographics + + + | Address | [address] | | | [place] [address] | + + + | Preferred Language | Unknown | + + + | Marital Status | | + + + | Jainism Affiliation | Unknown | + + + | Race | White | + + + | Ethnic Group | Not or | + + + Author + + + | Author | [facility] | + + + | Organization | [facility] | + + + | Address | [address] | | | [place] [address] | + + + | Phone | | + + + Care Team Providers + + + + | Care Binder Roller Name | Role | Phone | + [...] + + | 2025-02-04 | Isaiah | [facility] - | (no reaction) | [...] [facility] | | | [facility] | + + + + | (no date) | ALIROCUMAB | [facility] | | | [facility] | + + + + | (no date) | ALPRAZOLAM | [facility] | | | [facility] | + + + + | (no date) | BACLOFEN | [facility] | | | | [facility] | + + + + | (no date) | BACLOFEN | [facility] | | | | [facility] | + + + + | (no date) | BACLOFEN | [facility] | | | | [facility] | + + + + | (no date) | BACLOFEN | [facility] | | | | [facility] | + + + + | (no date) | OMEPRAZOLE | [facility] | | | | [facility] | + + + + | (no date) | OMEPRAZOLE | [facility] | | | | [facility] | + + + + | (no date) | OMEPRAZOLE | [facility] | | | | [facility] | + + + + | (no date) | OMEPRAZOLE | [facility] | | | [facility] | + + + + | (no date) | POTASSIUM CHLORIDE | [facility] | | | | [facility] | + + + + | (no date) | POTASSIUM CHLORIDE | [facility] [place] | | | | [facility] | + + + + | (no date) | POTASSIUM CHLORIDE | [facility] | | | | [facility] | + + + + | (no date) | POTASSIUM CHLORIDE | [facility] | | | | [facility] | + + + + | 2025-02-04 00:00 | CEFDINIR | [facility] | | | | [facility] | + + + + | 2025-02-04 00:00 | CEFDINIR | [facility] | | | | [facility] | + + + + | (no date) | | [facility] | | | BUTALB/ACETAMINOPHEN/CAFFEI | [facility] | | | [place] | | + + + + | (no date) | | [facility] | | | BUTALB/ACETAMINOPHEN/CAFFEI | [facility] | | | [place] | | + + + + | (no date) | | [facility] | | | BUTALB/ACETAMINOPHEN/CAFFEI | [facility] | | | [place] | | + + + + | (no date) | | [facility] | | | BUTALB/ACETAMINOPHEN/CAFFEI | [facility] | | | [place] | | + + + + | (no date) | PANTOPRAZOLE SODIUM | [facility] | | | | [facility] | + + + + | (no date) | PANTOPRAZOLE SODIUM | [facility] | | | | [facility] | + + + + | (no date) | PANTOPRAZOLE SODIUM | [facility] | | | | [facility] | + + + + | 2025-01-26 [...] [facility] | | | | [facility] | + + + + | (no date) | AMITRIPTYLINE HCL | [facility] | | | | [facility] | + + + + | (no date) | AMITRIPTYLINE HCL | [facility] | | | | [facility] | + + + + | (no date) | AMITRIPTYLINE HCL | [facility] | | | | [facility] | + + + + | (no date) | AMITRIPTYLINE HCL | [facility] | | | | [facility] | + + + + | (no date) | HYDROCODONE | [facility] | | | BIT/ACETAMINOPHEN | [facility] | + + + + | (no date) | HYDROCODONE | [facility] | | | BIT/ACETAMINOPHEN | [facility] | + + + + | (no date) | HYDROCODONE | [facility] | | | BIT/ACETAMINOPHEN | [facility] | + + + + | (no date) | HYDROCODONE | [facility] | | | BIT/ACETAMINOPHEN | [facility] | + + + + | (no date) | OXYBUTYNIN CHLORIDE | [facility] | | | | [facility] | + + + + | (no date) | METOPROLOL TARTRATE | [facility] | | | | [facility] | + + + + | (no date) | METOPROLOL TARTRATE | [facility] | | | | [facility] | + + + + | (no date) | METOPROLOL TARTRATE | [facility] | | | | [facility] | + + + + | (no date) | METOPROLOL TARTRATE | [facility] | | | | [facility] | + + + + | (no date) | HYDROmorphone HCL | [facility] | | | | [facility] | + + + + | (no date) | HYDROmorphone HCL | [facility] | | | | [facility] | + + + + | (no date) | HYDROmorphone HCL | [facility] | | | | [facility] | + + + + | (no date) | HYDROmorphone HCL | [facility] | | | | [facility] | + + + + | (no date) | ALENDRONATE SODIUM | [facility] | | | | [facility] | + + + + | (no date) | ALENDRONATE SODIUM | [facility] | | | | [facility] | + + + + | (no date) | ALENDRONATE SODIUM | [facility] | | | | [facility] | + + + + | (no date) | ALENDRONATE SODIUM | [facility] | | | | [facility] | + + + + | (no date) | hydrOXYzine HCL | [facility] | | | | [facility] | + + + + | (no date) | hydrOXYzine HCL | [facility] | | | | [facility] | + + + + | (no date) | hydrOXYzine HCL | [facility] | | | | [facility] | + + + + Problems + + + + | date | description | facility | + + + + | 2025-01-26 00:00 | Right otitis media | [facility] | | | | [facility] | + + + + | 2025-01-26 00:00 | Right otitis media | [facility] | | | | [facility] | + + + + | 2025-01-26 00:00 | Right otitis media | [facility] | | | | [facility] | + + + + | 2025-01-26 00:00 | Right otitis media | [facility] | | | | [facility] | + + + + | 2025-02-04 00:00 | Hypokalemia | [facility] | | | | [facility] | + + + + | 2025-02-04 00:00 | Hypokalemia | [facility] | | | | [facility] | + + + + | 2025-02-04 00:00 | Hypokalemia | [facility] | | | | [facility] | + + + + | 2025-02-04 00:00 | Urinary tract infection | [facility] | | | | [facility] | + + + + | 2025-02-04 00:00 | Urinary tract infection | [facility] | | | | [facility] | + + + + | 2025-02-04 00:00 | Urinary tract infection | [facility] | | | | [facility] | + + + + | 2025-02-04 00:00 | Weakness | [facility] | | | | [facility] | + + + + | 2025-02-04 00:00 | Weakness | [facility] | | | | [facility] | + + + + | 2025-02-04 00:00 | Weakness | [facility] | | | | [facility] | + + + + | 2025-02-06 00:00 | Displacement of Nayak | [facility] | | | catheter | [facility] | + + + + | 2025-02-06 00:00 | Displacement of Nayak | [facility] | | | catheter | [facility] | + + + + | 2025-02-07 00:00 | Fall | [facility] | | | | [facility] | + + + + | 2025-02-23 00:00 | Acute retention of urine | [facility] | | | | [facility] | + + + + Procedures No [...] 196 | (missing) | (missing) | | [facility] | 08:28:07 | [facility] | | | [...] 3.4 | (missing) | (missing) | | [facility] | 08:28:07 | [facility] | | | [...] 27 | (missing) | (missing) | | [facility] | 08:28:07 | [facility] | | | [...] 24 | (missing) | (missing) | | [facility] | 14:45:07 | [facility] | | | [...] 13.3 | (missing) | (missing) | | Bld[facility] | 11:42:07 | [facility] | | | [...] 102 | (missing) | (missing) | | [facility]Pl-[facility] | 11:42:07 | [facility] | | [...] | (missing) | (missing) | | [facility] | 13:15:07 | [facility] | | | [...]
--- OUTSIDE RECORDS SUMMARY | 2025-03-21 20:17 | XMS ---
PreManage Notification: CHITRA ALVAREZ Security Bait Maker Events No recent Security Events currently on file CRITERIA MET - 6 ED Visits in 6 Months - [facility] - 2 Visits in 30 Days CARE PROVIDERS TACHO GARAY Nurse Practitioner: Family [facility] PHONE: [phone] LUCY ACKERMAN Physician Network Relay Tester Drea GERBER PHONE: [phone] MARTINA PAUL Nurse Practitioner: Adult Health [facility] PHONE: [phone] Mynor has no Care Guidelines for this patient. E.D. VISIT COUNT (12 MO.) 9 NADJA [facility] NOTE: Visits indicate total known visits. ED/UCC VISIT TRACKING (12 MO.) 03/21/2025 20:10 NADJA Vaz[place] TYPE: Emergency COMPLAINT: - CATH PROBLEM 03/21/2025 13:21 NADJA [facility] [place] TYPE: Emergency COMPLAINT: - URINE PROBLEM 02/23/2025 14:05 NADJA Vazquez [place] TYPE: Emergency COMPLAINT: - CATHETER PROBLEM DIAGNOSES: - Allergy status to narcotic agent - [facility] (current) use of bisphosphonates - Nicotine dependence, unspecified, uncomplicated - Other chcf (current) drug therapy - Other mechanical complication of cystostomy catheter, initial encounter - Retention of urine, unspecified 02/08/2025 12:01 [facility] [place] TYPE: Emergency DIAGNOSES: - Breakdown (mechanical) of cystostomy catheter, initial encounter - Weakness - ALTERED MENTAL STATUS 02/07/2025 10:57 NADJA Vazquez [place] TYPE: Emergency COMPLAINT: - FALL DIAGNOSES: - Adult failure to thrive - Allergy status to narcotic agent - Body mass index [BMI] 20.0-20.9, adult - Encounter for examination and observation following other accident - History of falling - superintendent container terminal (current) use of bisphosphonates - Nicotine dependence, unspecified, uncomplicated - Other chcf (current) drug therapy - Unspecified complication of genitourinary prosthetic device, implant and graft, initial encounter - Weakness 02/06/2025 13:30 NADJA [facility] [place] TYPE: Emergency COMPLAINT: - URINE PROBLEM DIAGNOSES: - Allergy status to narcotic agent - Displacement of cystostomy catheter, initial encounter - [facility] (current) use of bisphosphonates - Nicotine dependence, unspecified, uncomplicated - Other termination clerk (current) drug therapy - Other mechanical complication of cystostomy catheter, initial encounter - Urinary tract infection, site not specified 02/05/2025 09:23 NADJA [facility] [place] TYPE: Emergency COMPLAINT: - CATHETER PROBLEM DIAGNOSES: - Allergy status to narcotic agent - [facility]FP (current) use of bisphosphonates - Nicotine dependence, unspecified, uncomplicated - Other termination clerk (current) drug therapy - Unspecified cystostomy status - Weakness 02/04/2025 07:00 NADJA [facility] [place] TYPE: Emergency COMPLAINT: - FALL DIAGNOSES: - Allergy status to narcotic agent - Hypokalemia - Nicotine dependence, unspecified, uncomplicated - Other termination clerk (current) drug therapy - Repeated falls - Urinary tract infection, site not specified - Weakness 01/26/2025 13:10 NADJA [facility] [place] TYPE: Emergency COMPLAINT: - RT EAR PAIN DIAGNOSES: - Allergy status to narcotic agent - Epilepsy, unspecified, not intractable, without status epilepticus - Nicotine dependence, unspecified, uncomplicated - Otalgia, right ear - Other termination clerk (current) drug therapy - Otitis media, unspecified, right ear 10/27/2024 09:15 NADJA Adkins TYPE: Emergency COMPLAINT: - URINARY PROBLEM DIAGNOSES: - Allergy status to narcotic agent - Altered mental status, unspecified - Encephalopathy, unspecified - Nicotine dependence, unspecified, uncomplicated - Other [facility] (current) drug therapy INPATIENT VISIT TRACKING (12 MO.) 10/27/2024 16:34 [facility] TYPE: Neurology DIAGNOSES: - Candidal stomatitis - Cannabis use, unspecified, uncomplicated - Depression, unspecified - Disorientation, unspecified - Encephalopathy, unspecified - Essential (primary) hypertension - Generalized anxiety disorder - Generalized idiopathic epilepsy and epileptic syndromes, not intractable, without status epilepticus - Metabolic encephalopathy - Other cystostomy status - Other termination clerk (current) drug therapy - Other specified hypothyroidism - Personal history of traumatic brain injury - Sedative, hypnotic or anxiolytic dependence, uncomplicated - Urinary tract infection, site not specified - AMS [email or web address]
[2025-03-21 21:12] LABS: BASOPHILS 0.4 % (0.1-1.2); EOSINOPHILS 0.7 % (0.7-5.8); LYMPHOCYTES 17.2 % (19.3-51.7); MCH 31.6 PG (25.6-32.2); MCHC 33.7 g/dL (32.2-35.5); MCV 93.7 fL (79.4-94.8); MONOCYTES 8.0 % (4.7-12.5); NEUTROPHILS 73.2 % (34.0-71.1); RBC 3.99 M/uL (3.93-5.22)
[2025-03-21 21:27] LABS: ALT (SGPT) 28.0 U/L (14-59); AST (SGOT) 32.0 U/L (15-37); GLOMERULAR FILTRATION RATE,EST 74.0 mL/min (>60); PROTEIN, TOTAL 5.4 g/dL (6.4-8.2); UREA NITROGEN 15.0 mg/dL (7-18)
[2025-03-21 23:29] LABS: BLOOD/HGB, URINE MODERATE (Negative); KETONE, URINE NEGATIVE (Negative); LEUK ESTERASE, URINE LARGE (negative); NITRITE, URINE POSITIVE (negative)
[2025-03-21 23:34] LABS: BACTERIA, URINE 4+ /hpf (negative); CASTS, URINE NONE SEEN \\lpf; CRYSTALS, URINE NONE SEEN (0-1+); EPITHELIAL CELLS, URINE SQUAMOUS 1+ /lpf (0-1+)
[2025-03-21 23:35] LABS: REFLEX CULTURE, URINE Yes (No)
[2025-03-21] MEDS ORDERED: CEPHALEXIN500 M1 PO (23:41)
[2025-03-21] MEDS ORDERED: CEPHALEXIN MONOHYDRATE 500 MG HOME.PACK PO ONE (23:45)
[2025-03-22 00:30] VITALS: BP 109/96
== END 2025-03-22 00:33 | disposition home or self-care (01) ==
LOC: ED 20:10
PROVIDERS: Family Medicine
DX: T83.010A Breakdown (mechanical) of cystostomy catheter, initial encounter (principal); N39.0 Urinary tract infection, site not specified; N20.0 Calculus of kidney; F17.200 Nicotine dependence, unspecified, uncomplicated; Z88.5 Allergy status to narcotic agent; Z79.899 Other long term (current) drug therapy
CPT/HCPCS: 36415; 74176; 80053; 81001; 85025; 87088; 99284-25; A9270